=== PATIENT | female | born 1975 | race Caucasian/White ===

== ENCOUNTER → 2019-02-17 | Outpatient (CLI) | payer BC ==
[~2019-02-17] MED LIST: CEPH500C PO; INSASP10V IM; INSASP10V SC; INSU100C4 SQ; INSU100V6 SQ; LISI40TA PO
[2019-02-17 11:51] LABS: HEMATOCRIT 38 % (35-52); HEMOGLOBIN 11.5 G/DL (11.5-16.0); MEAN CORPUSCULAR HEMOGLOBIN 25 PG (25-34); MEAN CORPUSCULAR HGB CONC 30 G/DL (32-36); MEAN CORPUSCULAR VOLUME 83 FL (80-99); MEAN PLATELET VOLUME 8.7 FL (7.4-10.4); PLATELET COUNT 108 10^3/uL (130-400); RED CELL DISTRIBUTION WIDTH 14.8 % (10.0-14.5); WHITE BLOOD COUNT 10.4 10^3/uL (4.3-11.0)
[2019-02-17 11:52] LABS: BASOPHILS # (AUTO) 0.1 10^3/uL (0.0-0.1); BASOPHILS % (AUTO) 1 % (0-10); EOSINOPHILS # (AUTO) 0.1 10^3/uL (0.0-0.3); EOSINOPHILS % (AUTO) 1 % (0-10); LYMPHOCYTES % (AUTO) 29 % (12-44); MONOCYTES # (AUTO) 0.7 X 10^3 (0.0-1.0); MONOCYTES % (AUTO) 7 % (0-12); NEUTROPHILS # (AUTO) 6.4 X 10^3 (1.8-7.8); NEUTROPHILS % (AUTO) 61 % (42-75)
[2019-02-17 12:04] LABS: ALBUMIN 3.4 GM/DL (3.2-4.5); BILIRUBIN,TOTAL 0.2 MG/DL (0.1-1.0); CALCIUM 10.1 MG/DL (8.5-10.1); CREATININE SERUM 1.72 MG/DL (0.60-1.30); POTASSIUM 3.9 MMOL/L (3.6-5.0); TOTAL PROTEIN 7.3 GM/DL (6.4-8.2)
[2019-02-17 12:08] LABS: VANCOMYCIN,TROUGH 27.2 UG/ML (10.0-20.0)
[2019-02-17 12:22] LABS: ERYTHROCYTE SEDIMENTATION RATE 1 MM/HR (0-20)
== END ==
LOC: LAB FS 11:15
PROVIDERS: ATTEND Internal Medicine Infectious Disease
DX: M86.8X8 Other osteomyelitis, other site (principal); Z89.429 Acquired absence of other toe(s), unspecified side
CPT/HCPCS: 36415; 80053; 80202; 85025; 85652

== ENCOUNTER → 2019-02-18 | Outpatient (CLI) | payer BC | LOC: LAB FS 13:51 | PROVIDERS: ATTEND Internal Medicine Infectious Disease | DX: M86.8X8 Other osteomyelitis, other site (principal) | CPT/HCPCS: 36415; 80202 ==

== ENCOUNTER → 2019-02-22 | Outpatient (CLI) | payer BC | LOC: LAB 11:33 | PROVIDERS: ATTEND Internal Medicine Infectious Disease | DX: M86.171 Other acute osteomyelitis, right ankle and foot (principal); B95.62 Methicillin resistant Staphylococcus aureus infection as the cause of diseases classified elsewhere | CPT/HCPCS: 36415; 80202 ==

== ENCOUNTER → 2019-02-24 | Outpatient (CLI) | payer BC ==
[2019-02-24 08:11] LABS: BASOPHILS # (AUTO) 0.1 10^3/uL (0.0-0.1); BASOPHILS % (AUTO) 1 % (0-10); EOSINOPHILS # (AUTO) 0.2 10^3/uL (0.0-0.3); EOSINOPHILS % (AUTO) 3 % (0-10); HEMATOCRIT 34 % (35-52); LYMPHOCYTES # (AUTO) 2.4 X 10^3 (1.0-4.0); LYMPHOCYTES % (AUTO) 31 % (12-44); MEAN CORPUSCULAR HEMOGLOBIN 26 PG (25-34); MEAN CORPUSCULAR HGB CONC 32 G/DL (32-36); MEAN CORPUSCULAR VOLUME 80 FL (80-99); MEAN PLATELET VOLUME 9.3 FL (7.4-10.4); MONOCYTES # (AUTO) 0.7 X 10^3 (0.0-1.0); MONOCYTES % (AUTO) 10 % (0-12); NEUTROPHILS # (AUTO) 4.3 X 10^3 (1.8-7.8); NEUTROPHILS % (AUTO) 56 % (42-75); PLATELET COUNT 250 10^3/uL (130-400); RED CELL DISTRIBUTION WIDTH 17.1 % (10.0-14.5); WHITE BLOOD COUNT 7.7 10^3/uL (4.3-11.0)
[2019-02-24 08:29] LABS: ALBUMIN 3.5 GM/DL (3.2-4.5); BILIRUBIN,TOTAL 0.2 MG/DL (0.1-1.0); CALCIUM 9.1 MG/DL (8.5-10.1); CREATININE SERUM 1.31 MG/DL (0.60-1.30); POTASSIUM 4.6 MMOL/L (3.6-5.0)
[2019-02-24 08:35] LABS: VANCOMYCIN,TROUGH 17.4 UG/ML (10.0-20.0)
[2019-02-24 08:48] LABS: ERYTHROCYTE SEDIMENTATION RATE 38 MM/HR (0-20)
== END ==
LOC: LAB 07:58
PROVIDERS: ATTEND Internal Medicine Infectious Disease
DX: M86.8X7 Other osteomyelitis, ankle and foot (principal); B95.1 Streptococcus, group B, as the cause of diseases classified elsewhere
CPT/HCPCS: 36415; 80053; 80202; 85025; 85652

== ENCOUNTER → 2019-03-03 | Outpatient (CLI) | payer BC ==
[2019-03-03 19:41] LABS: CALCIUM 9.5 MG/DL (8.5-10.1); CREATININE SERUM 1.35 MG/DL (0.60-1.30)
[2019-03-03 19:42] LABS: ALBUMIN 3.8 GM/DL (3.2-4.5); BILIRUBIN,TOTAL 0.2 MG/DL (0.1-1.0); TOTAL PROTEIN 6.7 GM/DL (6.4-8.2)
[2019-03-03 19:54] LABS: HEMATOCRIT 38 % (35-52); HEMOGLOBIN 11.4 G/DL (11.5-16.0); MEAN CORPUSCULAR HEMOGLOBIN 26 PG (25-34); MEAN CORPUSCULAR HGB CONC 30 G/DL (32-36); MEAN CORPUSCULAR VOLUME 86 FL (80-99); PLATELET COUNT 245 10^3/uL (130-400); RED CELL DISTRIBUTION WIDTH 17.4 % (10.0-14.5)
[2019-03-03 19:55] LABS: BASOPHILS % (AUTO) 1 % (0-10); EOSINOPHILS # (AUTO) 0.2 10^3/uL (0.0-0.3); EOSINOPHILS % (AUTO) 3 % (0-10); LYMPHOCYTES % (AUTO) 29 % (12-44); MEAN PLATELET VOLUME 9.5 FL (7.4-10.4); MONOCYTES # (AUTO) 0.7 X 10^3 (0.0-1.0); MONOCYTES % (AUTO) 10 % (0-12); NEUTROPHILS % (AUTO) 57 % (42-75)
[2019-03-03 19:56] LABS: BASOPHILS # (AUTO) 0.1 10^3/uL (0.0-0.1)
[2019-03-03 21:46] LABS: ERYTHROCYTE SEDIMENTATION RATE 1 MM/HR (0-20)
== END ==
LOC: LAB FS 19:04
PROVIDERS: ATTEND Internal Medicine Infectious Disease
DX: E11.69 Type 2 diabetes mellitus with other specified complication (principal); E11.621 Type 2 diabetes mellitus with foot ulcer; L97.509 Non-pressure chronic ulcer of other part of unspecified foot with unspecified severity
CPT/HCPCS: 36415; 80053; 82550; 85025; 85652

== ENCOUNTER → 2019-03-10 | Outpatient (CLI) | payer BC ==
[2019-03-10 17:33] LABS: POTASSIUM 3.8 MMOL/L (3.6-5.0)
[2019-03-10 17:34] LABS: ALBUMIN 3.6 GM/DL (3.2-4.5); BILIRUBIN,TOTAL 0.2 MG/DL (0.1-1.0); CALCIUM 10.2 MG/DL (8.5-10.1); CREATININE SERUM 1.21 MG/DL (0.60-1.30); TOTAL PROTEIN 6.8 GM/DL (6.4-8.2)
[2019-03-10 17:55] LABS: HEMATOCRIT 36 % (35-52); HEMOGLOBIN 11.4 G/DL (11.5-16.0); MEAN CORPUSCULAR HEMOGLOBIN 26 PG (25-34); MEAN CORPUSCULAR VOLUME 82 FL (80-99); WHITE BLOOD COUNT 5.8 10^3/uL (4.3-11.0)
[2019-03-10 17:56] LABS: BASOPHILS % (AUTO) 1 % (0-10); EOSINOPHILS % (AUTO) 3 % (0-10); LYMPHOCYTES # (AUTO) 1.4 X 10^3 (1.0-4.0); LYMPHOCYTES % (AUTO) 24 % (12-44); MEAN CORPUSCULAR HGB CONC 32 G/DL (32-36); MEAN PLATELET VOLUME 9.9 FL (7.4-10.4); MONOCYTES # (AUTO) 0.4 X 10^3 (0.0-1.0); MONOCYTES % (AUTO) 7 % (0-12); NEUTROPHILS # (AUTO) 3.7 X 10^3 (1.8-7.8); NEUTROPHILS % (AUTO) 65 % (42-75); PLATELET COUNT 190 10^3/uL (130-400); RED CELL DISTRIBUTION WIDTH 16.7 % (10.0-14.5)
[2019-03-10 17:57] LABS: BASOPHILS # (AUTO) 0.1 10^3/uL (0.0-0.1); EOSINOPHILS # (AUTO) 0.2 10^3/uL (0.0-0.3)
[2019-03-10 19:41] LABS: ERYTHROCYTE SEDIMENTATION RATE 41 MM/HR (0-20)
== END ==
LOC: LAB FS 15:55
PROVIDERS: ATTEND Internal Medicine Infectious Disease
DX: M86.171 Other acute osteomyelitis, right ankle and foot (principal)
CPT/HCPCS: 36415; 80053; 82550; 85025; 85652

== ENCOUNTER → 2019-03-17 | Outpatient (CLI) | payer BC ==
[2019-03-17 20:50] LABS: BASOPHILS # (AUTO) 0.1 10^3/uL (0.0-0.1); BASOPHILS % (AUTO) 1 % (0-10); EOSINOPHILS # (AUTO) 0.2 10^3/uL (0.0-0.3); EOSINOPHILS % (AUTO) 3 % (0-10); HEMATOCRIT 37 % (35-52); HEMOGLOBIN 11.9 G/DL (11.5-16.0); LYMPHOCYTES # (AUTO) 2.9 X 10^3 (1.0-4.0); LYMPHOCYTES % (AUTO) 33 % (12-44); MEAN CORPUSCULAR HEMOGLOBIN 26 PG (25-34); MEAN CORPUSCULAR HGB CONC 32 G/DL (32-36); MEAN CORPUSCULAR VOLUME 82 FL (80-99); MEAN PLATELET VOLUME 9.8 FL (7.4-10.4); MONOCYTES # (AUTO) 0.7 X 10^3 (0.0-1.0); MONOCYTES % (AUTO) 8 % (0-12); NEUTROPHILS # (AUTO) 4.8 X 10^3 (1.8-7.8); NEUTROPHILS % (AUTO) 55 % (42-75); PLATELET COUNT 243 10^3/uL (130-400); RED CELL DISTRIBUTION WIDTH 16.6 % (10.0-14.5); WHITE BLOOD COUNT 8.7 10^3/uL (4.3-11.0)
[2019-03-17 21:12] LABS: ALBUMIN 3.9 GM/DL (3.2-4.5); BILIRUBIN,TOTAL 0.2 MG/DL (0.1-1.0); CALCIUM 9.8 MG/DL (8.5-10.1); CREATININE SERUM 1.71 MG/DL (0.60-1.30); ERYTHROCYTE SEDIMENTATION RATE 43 MM/HR (0-20); POTASSIUM 3.9 MMOL/L (3.6-5.0)
== END ==
LOC: LAB FS 20:16
PROVIDERS: ATTEND Internal Medicine Infectious Disease
DX: M86.171 Other acute osteomyelitis, right ankle and foot (principal)
CPT/HCPCS: 36415; 80053; 82550; 85025; 85652

== ENCOUNTER 2022-04-01 10:49 | Observation (INO) | payer BC, MEDICAID ==
[2022-04-01] VITALS (7 sets, daily range): BP systolic 148–168; BP diastolic 90–110
[~2022-04-01] VITALS: Ht 170 cm; Wt 117.2 kg
[2022-04-01 11:47] LABS: BASOPHILS % (AUTO) 1 % (0-10); EOSINOPHILS # (AUTO) 0.1 10^3/uL (0.0-0.3); EOSINOPHILS % (AUTO) 2 % (0-10); HEMATOCRIT 34 % (35-52); LYMPHOCYTES # (AUTO) 1.5 10^3/uL (1.0-4.0); LYMPHOCYTES % (AUTO) 34 % (12-44); MEAN CORPUSCULAR HEMOGLOBIN 31 pg (25-34); MEAN CORPUSCULAR HGB CONC 32 g/dL (32-36); MEAN CORPUSCULAR VOLUME 95 fL (80-99); MEAN PLATELET VOLUME 11.1 fL (9.0-12.2); MONOCYTES # (AUTO) 0.6 10^3/uL (0.0-1.0); MONOCYTES % (AUTO) 12 % (0-12); NEUTROPHILS # (AUTO) 2.3 10^3/uL (1.8-7.8); NEUTROPHILS % (AUTO) 51 % (42-75); PLATELET COUNT 107 10^3/uL (130-400); WHITE BLOOD COUNT 4.5 10^3/uL (4.3-11.0)
[2022-04-01 11:50] LABS: ALBUMIN 3.3 GM/DL (3.2-4.5); POTASSIUM 4.9 MMOL/L (3.6-5.0)
--- NOTE | 2022-04-01 11:50 | ED Chest Pain ---
General Chief Complaint: Chest Pain Stated Complaint: CHEST PAIN Nursing Triage Note: PT TO [facility] WITH CC OF CHEST PAIN WITH ELEVATED TROP ON 03/30 BUT REFUSED TO COME TO THE ER. DR. TINEO UPPED HER TOPRORAL FROM 25 TO 37.5. Source: patient Exam Limitations: no limitations History of Present Illness Date Seen by Provider: Apr 01, 2022 Time Seen by Provider: 11:10 Initial Comments Patient is a 46 yo F who presents to the ED with chest pain that began 2-3 days ago. Patient had a troponin drawn at her SNF on 03/30 and resulted on 03/31 as elevated. Patient was asked to present to the ED yesterday but she refused. Patient states the pain is across her chest and is worse with exertion. She endorses shortness of air as well. She was placed on oxygen due to oxygen saturations in the 80s. She does not normally require O2. She has a h/o a stroke earlier this year. She denies any cardiac history. States she saw a aging room operator in the past but hasn't seen one "in a long time." Review of her paperwork from the SNF notable for reported h/o a-fib and cardiomyopathy. She denies any knowledge of being diagnosed with cardiomyopathy. She is on apixaban but isn't sure why. Also endorses several days of bilateral lower extremity edema. Reportedly she has gained weight over the last few days. Denies any fever, cough, nasal congestion. Timing/Duration: 3-4 days Location: central Radiation: no radiation Prior CP/Workup: no prior chest pain Modifying Factors: worse with movement; improves with oxygen, improves with rest Allergies and Home Medications Allergies Coded Allergies: Penicillins (Verified Allergy, Unknown, 01/19/08) Patient Home Medication List Home Medication List Reviewed: Yes Cephalexin Monohydrate (Cephalexin) 500 Mg Capsule, 1 EACH PO TID, (Reported) Entered as Reported by: FLAKITA MALONEY on 10/12/10 110 Insulin Aspart (Novolog Vial) 10 Unit/0.1 Ml Susp, 26 UNIT SC TID, (Reported) Entered as Reported by: FLAKITA MALONEY on 10/12/10 1104 Insulin Glargine,Hum.rec.anlog (Lantus 10 Ml Vial) 100 Unit/1 Ml Vial, 23 UNITS SQ HS, (Reported) Entered as Reported by: FLAKITA MALONEY on 10/12/101103 Lisinopril (Zestril) 40 Mg Tablet, 1 EACH PO DAILY, (Reported) Entered as Reported by: FLAKITA MALONEY on 10/12/101103 Review of Systems Review of Systems Constitutional: weight gain EENTM: No Symptoms Reported Respiratory: Shortness of Air, SOA With Exertion Cardiovascular: Chest Pain, Edema Gastrointestinal: No Symptoms Reported Genitourinary: No Symptoms Reported Musculoskeletal: no symptoms reported Skin: no symptoms reported Psychiatric/Neurological: No Symptoms Reported Endocrine: No Symptoms Reported Past Gtmzlkz-Lsribu-Buqrtp Hx Patient Social History Tobacco Use?: No Substance use?: No Alcohol Use?: No Immunizations Up To Date Second COVID19 Vaccination Jean Carlos: 02/2021 Past Medical History Surgery/Hospitalization HX: TYPE II DIABETIC, EPILEPSY HYPOTHYRODISM KIDNEY DISEASE STAGE 3 Reproductive Disorders: No Physical Exam Vital Signs Vital Signs - First Documented 04/01/22 10:52 Temp 35.7 Pulse 66 Resp 20 B/P (MAP) 149/109 (122) Pulse Ox 96 O2 Delivery Nasal Cannula O2 Flow Rate 2.00 Capillary Refill : Less Than 3 Seconds Height, Weight, BMI Height: '" Weight: lbs. oz. kg; 40.00 BMI Method:Stated General Appearance: No Apparent Distress, WD/WN HEENT: PERRL/EOMI, TMs Normal, Normal ENT Inspection, Pharynx Normal Neck: Full Range of Motion, Normal Inspection, Non Tender, Supple Respiratory: Chest Non Tender, Lungs Clear Cardiovascular: Regular Rate, Rhythm Gastrointestinal: Normal Bowel Sounds Extremity: Normal Capillary Refill, Pedal Edema Neurologic/Psychiatric: Alert, Oriented x3, No Motor/Sensory Deficits, Normal Mood/Affect, department director II-XII Norm as Tested Skin: Normal Color, Warm/Dry Progress/Results/Core Measures Results/Orders Lab Results Laboratory Tests Test 04/01/22 11:04 Range/Units White Blood Count 4.5 4.3-11.0 10^3/uL Red Blood Count 3.61 L 3.80-5.11 10^6/uL Hemoglobin 11.0 L 11.5-16.0 g/dL Hematocrit 34 L 35-52 % Mean Corpuscular Volume 95 80-99 fL Mean Corpuscular Hemoglobin 31 25-34 pg Mean Corpuscular Hemoglobin Concent 32 32-36 g/dL Red Cell Distribution Width 14.4 10.0-14.5 % Platelet Count 107 L 130-400 10^3/uL Mean Platelet Volume 11.1 9.0-12.2 fL Immature Granulocyte % (Auto) 0 % Neutrophils (%) (Auto) 51 42-75 % Lymphocytes (%) (Auto) 34 12-44 % Monocytes (%) (Auto) 12 0-12 % Eosinophils (%) (Auto) 2 0-10 % Basophils (%) (Auto) 1 0-10 % Neutrophils # (Auto) 2.3 1.8-7.8 10^3/uL Lymphocytes # (Auto) 1.5 1.0-4.0 10^3/uL Monocytes # (Auto) 0.6 0.0-1.0 10^3/uL Eosinophils # (Auto) 0.1 0.0-0.3 10^3/uL Basophils # (Auto) 0.0 0.0-0.1 10^3/uL Immature Granulocyte # (Auto) 0.0 0.0-0.1 10^3/uL Percent Immature Platelet Fraction 2.9 0.0-7.6 % Prothrombin Time 14.8 H 12.2-14.7 SEC INR Comment 1.1 0.8-1.4 Activated Partial Thromboplast Time 22 L 24-35 SEC Sodium Level 142 135-145 MMOL/L Potassium Level 4.9 3.6-5.0 MMOL/L Chloride Level 106 98-107 MMOL/L Carbon Dioxide Level 24 21-32 MMOL/L Anion Gap 12 5-14 MMOL/L Blood Urea Nitrogen 33 H 7-18 MG/DL Creatinine 1.81 H 0.60-1.30 MG/DL Estimat Glomerular Filtration Rate 34 BUN/Creatinine Ratio 18 Glucose Level 110 H 70-105 MG/DL Calcium Level 8.4 L 8.5-10.1 MG/DL Corrected Calcium 9.0 8.5-10.1 MG/DL Magnesium Level 1.9 1.6-2.4 MG/DL Total Bilirubin 0.4 0.1-1.0 MG/DL Aspartate Amino Transf (AST/SGOT) 45 H 5-34 U/L Alanine Aminotransferase (ALT/SGPT) 21 0-55 U/L Alkaline Phosphatase 74 40-136 U/L Myoglobin 194.4 H 10.0-92.0 NG/ML Troponin I < 0.028 <0.028 NG/ML B-Type Natriuretic Peptide 692.0 H <100.0 PG/ML Total Protein 6.9 6.4-8.2 GM/DL Albumin 3.3 3.2-4.5 GM/DL Smear Scan YES My Orders Orders - YOAV RIZO [employer] Cbc With Automated Diff (04/01/22 11:38) Magnesium (04/01/22 11:38) Chest 1 View, Ap/Pa Only (04/01/22 11:38) Ekg Tracing (04/01/22 11:38) Comprehensive Metabolic Panel (04/01/22 11:38) Myoglobin Serum (04/01/22 11:38) Protime With Inr (04/01/22 11:38) Partial Thromboplastin Time (04/01/22 11:38) O2 (04/01/22 11:38) Monitor-Rhythm Ecg Trace Only (04/01/22 11:38) Ed Iv/Invasive Line Start (04/01/22 11:38) Bnp Miner (04/01/22 11:38) Troponin I Miner (04/01/22 11:38) Furosemide Injection (Lasix Injection) (04/01/22 13:15) Ed Admission (Communication) (04/01/22 14:08) Medications Given in ED Current Medications Medications Dose Ordered Sig/Aravind Route Start Time Stop Time Status Last Admin Dose Admin Furosemide 40 mg ONCE ONCE IVP 04/01/22 13:15 04/01/22 13:17 DC 04/01/22 13:44 40 MG Vital Signs/I&O 04/01/22 04/01/22 10:52 10:55 Temp 35.7 Pulse 66 Resp 20 B/P (MAP) 149/109 (122) Pulse Ox 96 96 O2 Delivery Nasal Cannula Nasal Cannula O2 Flow Rate 2.00 2.00 Blood Pressure Mean: 122 Progress Progress Note : Progress Note Patient is nontoxic on exam. No adventitious lung sounds noted on exam. 2+ pitting edema noted to bilateral feet/ankles/lower legs. Requiring two liters of O2 via NC to maintain oxygen saturations. Will obtain cardiac workup. Troponin negative. BNP elevated. EKG without ischemic change or arrhythmia. Laboratory evaluation otherwise reassuring. Chest xray with bilateral opacities as well as small left pleural effusion. Feel this is more likely related to fluid overload versus infection. Will hold antimicrobials at this time. Patient given lasix. Cardiology consulted. Will admit for further evaluation and treatment. Hospitalist kindly agreed to admit. Consults : Consulting Physician: WICHO KHALIL MD FACP FACC CCDS Consults Notes will see patient; recs for continued Lasix Departure Impression Primary Impression: Acute exacerbation of CHF (congestive heart failure) Qualified Codes: I50.9 - Heart failure, unspecified Disposition: ADMITTED INPATIENT Condition: Stable Admissions Decision to Admit/Date: Apr 01, 2022 Time/Decision to Admit Time: 15:50 Departure-Patient Inst. Referrals: MENA ZURITA DO (PCP/Family) Primary Care Physician YOAV RIZO APRN Apr 01, 2022 11:50
[2022-04-01 11:51] LABS: CALCIUM 8.4 MG/DL (8.5-10.1); INR 1.1 (0.8-1.4); PROTHROMBIN TIME PATIENT 14.8 SEC (12.2-14.7)
[2022-04-01 11:53] LABS: TOTAL PROTEIN 6.9 GM/DL (6.4-8.2)
[2022-04-01 11:54] LABS: BILIRUBIN,TOTAL 0.4 MG/DL (0.1-1.0)
[2022-04-01 11:56] LABS: CREATININE SERUM 1.81 MG/DL (0.60-1.30)
[2022-04-01 11:59] LABS: MAGNESIUM 1.9 MG/DL (1.6-2.4)
--- NOTE | 2022-04-01 12:43 | Diagnostic Imaging Report ---
HISTORY: Chest pain COMPARISON: None TECHNIQUE: Frontal view of the chest. FINDINGS: Lung volumes are low. There are perihilar and bibasilar airspace opacities. There is a small left pleural effusion. There is no pneumothorax. IMPRESSION: 1. Bilateral perihilar and bibasilar airspace opacities, may represent edema or infection. 2. Small left pleural effusion. Dictated by: Dictated on workstation # [id number]
[2022-04-01 12:56] LABS: SMEAR SCAN COMMENT YES
[2022-04-01] MEDS ORDERED: FUROSEMIDE 40 MG/4 ML INJ (LASIX) IVP ONE (13:15)
[2022-04-01] MEDS ORDERED: CALCIUM CARBONATE 500 MG (TUMS) TAB.CHEW PO PRN (14:30)
[2022-04-01] MEDS ORDERED: cloNIDine 0.1 MG (CATAPRES) TAB PO PRN (14:30)
[2022-04-01] MEDS ORDERED: ACETAMINOPHEN 325 MG TABLET PO PRN (14:30)
[2022-04-01] MEDS ORDERED: diphenhydrAMINE 50 MG/ML INJ (BENADRYL) IVP PRN (14:30)
[2022-04-01] MEDS ORDERED: MELATONIN 3 MG TABLET PO PRN (14:30)
[2022-04-01] MEDS ORDERED: PATIENT MAY USE OWN MEDS, ALL PO SCH (14:30)
[2022-04-01] MEDS ORDERED: diphenhydrAMINE 25 MG TAB (BENADRYL) PO PRN (14:30)
[2022-04-01] MEDS ORDERED: NITROGLYCERIN 0.4 MG SL TABS BTL 25'S SL PRN (14:30)
[2022-04-01] MEDS ORDERED: MILK OF MAGNESIA 400 MG/5 ML 30 ML UDC PO PRN (14:30)
[2022-04-01] MEDS ORDERED: ONDANSETRON 4 MG (ZOFRAN) ORAL DISSOLVE TAB PO PRN (14:30)
[2022-04-01] MEDS ORDERED: polyethylene glycoL POWDER 17 GM (MIRALAX) PACK PO PRN (14:30)
[2022-04-01] MEDS ORDERED: ONDANSETRON 4 MG/2 ML (SDV) Z0FRAN IV PRN (14:30)
[2022-04-01] MEDS ORDERED: ALPRAZolam 0.5 MG (XANAX) TAB PO PRN (14:30)
[2022-04-01] MEDS ORDERED: BISACODYL 10 MG SUPP (DULCOLAX) PR PRN (14:30)
[2022-04-01] MEDS ORDERED: ANTACID SUSP 30 ML UDC (MYLANTA) PO PRN (14:30)
[2022-04-01] MEDS ORDERED: LACTULOSE SYRUP 10GM/15ML (ENULOSE) 30ML UDC PO PRN (14:30)
[2022-04-01] MEDS ORDERED: morphine INJ 4 MG/ML 1 ML (VIAL/SYRINGE) IV PRN (14:30)
--- NOTE | 2022-04-01 14:30 | History & Physical-Hospitalist ---
History of Present Illness HPI/Chief Complaint Chief complaint: Chest pain with shortness of breath HPI: This is a 46-year-old female who resides in a [facility] due to prior stroke who presents to the ER with shortness of breath and chest pain was found to have new onset congestive heart failure. Cardiology was consulted and Lasix IV was ordered. Mother is at the bedside. Source: patient Exam Limitations: clinical condition Date Seen 04/01/22 Time Seen by a Provider: 16:00 Attending Physician Liset Zarate DO PCP Admitting Physician: Danielle Mota DO Attending Physician: Danielle Mota DO Referring Physician WICHO KHALIL MD FACP FAC CCDS Date of Admission Apr 01, 2022 at 14:09 Home Medications & Allergies Home Medications Reviewed patient Home Medication Reconciliation performed by pharmacy medication reconciliations compressor technician and/or nursing. Patients Allergies have been reviewed. Allergies Allergies Coded Allergies Penicillins (Verified Allergy, Unknown, 01/19/08) Past Mwjgwnp-Svvmgy-Rrmego Hx Patient Social History Marrital Status: single Employed/Student: unemployed Tobacco Use?: No Substance use?: No Alcohol Use?: No Immunizations Up To Date Second COVID19 Vaccination Jean Carlos: 02/2021 Current Status Primary Language: Kinyarwanda Preferred Spoken Language: Kinyarwanda Past Medical History High Cholesterol, Hypertension Stroke Review of Systems Constitutional: see HPI Respiratory: short of breath Cardiovascular: chest pain Physical Exam Physical Exam Vital Signs Vital Signs - First Documented 04/01/22 04/01/22 10:52 14:44 Temp 35.7 Pulse 66 Resp 20 B/P (MAP) 149/109 (122) Pulse Ox 96 O2 Delivery Nasal Cannula O2 Flow Rate 2.00 FiO2 28 Capillary Refill : Less Than 3 Seconds Height, Weight, BMI Height: '" Weight: lbs. oz. kg; 40.00 BMI Method:Stated General Appearance: No Apparent Distress, Chronically ill Eyes: Right Eye Normal Inspection, Right Eye PERRL HEENT: PERRL/EOMI, Normal ENT Inspection, Pharynx Normal, Moist Mucous Membranes Neck: Full Range of Motion, Normal Inspection, Non Tender Respiratory: Chest Non Tender, Lungs Clear, Normal Breath Sounds, No Accessory Muscle Use, No Respiratory Distress Cardiovascular: Regular Rate, Rhythm, No Edema, No Gallop, No JVD, No Murmur, Normal Peripheral Pulses Gastrointestinal: Normal Bowel Sounds, No Organomegaly, No Pulsatile Mass, Non Tender, Soft Back: Normal Inspection, No CVA Tenderness, No Vertebral Tenderness Extremity: Normal Capillary Refill, Normal Inspection, Normal Range of Motion (Generalized weakness), Non Tender, No Calf Tenderness, No Pedal Edema Neurologic/Psychiatric: Alert, Oriented x3, No Motor/Sensory Deficits, Normal Mood/Affect, Disoriented Skin: Normal Color, Warm/Dry Lymphatic: No Adenopathy Results Results/Procedures Labs Laboratory Tests 04/01/22 11:04 Patient resulted labs reviewed. Assessment/Plan Admission Diagnosis Assessment: Chest pain New onset congestive heart failure Prior CVA resides in a mcc at 46 years old Hypertension Hyperlipidemia A. fib Plan: Supportive care Monitor closely Cardiology consult Admission Status: Observation Diagnosis/Problems Diagnosis/Problems (1) Acute exacerbation of CHF (congestive heart failure) Status: Acute Qualifiers: Heart failure type: unspecified Qualified Codes: I50.9 - Heart failure, unspecified DANIELLE MOTA DO Apr 01, 2022 14:30
[2022-04-01] MEDS ORDERED: RT-ALBUTEROL SULF 2.5 MG/3 ML PRE-MIX VIAL INH PRN (17:00)
[2022-04-01] MEDS ORDERED: FURO40TA4 PO (17:25)
[2022-04-01] MEDS ORDERED: MAGN400O7 PO (17:25)
[2022-04-01] MEDS ORDERED: LACO100T4 PO (17:25)
[2022-04-01] MEDS ORDERED: FERR-84 PO (17:25)
[2022-04-01] MEDS ORDERED: AMLO-250 PO (17:25)
[2022-04-01] MEDS ORDERED: METO-333 PO (17:25)
[2022-04-01] MEDS ORDERED: OLAN2.5T27 PO (17:25)
[2022-04-01] MEDS ORDERED: MINE120C TP (17:25)
[2022-04-01] MEDS ORDERED: APIX5TAB PO (17:25)
[2022-04-01] MEDS ORDERED: B12/1TAB PO (17:25)
[2022-04-01] MEDS ORDERED: ASPI-999 PO (17:25)
[2022-04-01] MEDS ORDERED: ATOR40TA70 PO (17:25)
[2022-04-01] MEDS ORDERED: LEVE750T5 PO (17:25)
[2022-04-01] MEDS ORDERED: ACET325T49 PO (17:25)
[2022-04-01] MEDS ORDERED: DOCU-143 PO (17:25)
[2022-04-01] MEDS ORDERED: DIVA-76 PO (17:25)
[2022-04-01] MEDS ORDERED: ESCI-2 PO (17:25)
[2022-04-01] MEDS: RT-ALBUTEROL SULF 2.5 MG/3 ML PRE-MIX VIAL INH SCH (19:57)
[2022-04-01] MEDS ORDERED: amLODIPine 5 MG (NORVASC) TAB PO ONE (20:30)
[2022-04-01] MEDS: APIXABAN 5 MG (ELIQUIS) TABLET PO SCH (21:41)
[2022-04-01] MEDS: DOCUSATE SODIUM 100 MG (COLACE) CAP PO SCH (21:41)
[2022-04-01] MEDS: hydrALAZINE (APRESOLINE) 25 MG TAB PO SCH (21:41)
[2022-04-01] MEDS: SENNOSIDES 8.6 MG (SENOKOT) TAB PO SCH (21:41)
[2022-04-02] VITALS: BP 152/89
[2022-04-02 04:00] VITALS: BP 142/83
--- NOTE | 2022-04-02 05:26 | Progress Note - Hospitalist ---
Subjective HPI/CC On Admission Date Seen by Provider: Apr 02, 2022 Time Seen by Provider: 11:00 Chief complaint: Chest pain with shortness of breath HPI: This is a 46-year-old female who resides in a halfway due to prior stroke who presents to the ER with shortness of breath and chest pain was found to have new onset congestive heart failure. Cardiology was consulted and Lasix IV was ordered. Mother is at the bedside. Subjective/Events-last exam Patient doing a lot better Up in chair sitting Mother at the bedside Increased urinary output from Lasix Stress test tomorrow Is able to eat and drink today Creatinine stable 1.7 Review of Systems General: Fatigue, Malaise Pulmonary: Dyspnea, Cough Neurological: Weakness, Incoordination, Confusion Objective Exam Vital Signs Vital Signs Date Time Temp Pulse Resp B/P (MAP) Pulse Ox O2 Delivery O2 Flow Rate FiO2 04/02/22 15:08 63 145/77 (99) 04/02/22 11:51 36.2 10 100 Nasal Cannula 2.00 04/02/22 08:00 96 Capillary Refill : Less Than 3 Seconds General Appearance: No Apparent Distress, WD/WN Respiratory: No Accessory Muscle Use, No Respiratory Distress, Decreased Breath Sounds Cardiovascular: Regular Rate, Rhythm Neurologic/Psychiatric: Alert, Oriented x3, Depressed Affect (None), Disor iented Results/Procedures Lab Laboratory Tests 04/02/22 05:32 Patient resulted labs reviewed. Assessment/Plan Assessment and Plan Assess & Plan/Chief Complaint Assessment: Chest pain New onset congestive heart failure Prior CVA resides in a halfway at 46 years old Hypertension Hyperlipidemia A. fib Depression Plan: Supportive care Monitor closely Cardiology consult appreciated Stress test tomorrow Diagnosis/Problems Diagnosis/Problems (1) Acute exacerbation of CHF (congestive heart failure) Status: Acute Qualifiers: Heart failure type: unspecified Qualified Codes: I50.9 - Heart failure, unspecified ZEUS GALLARDO DO Apr 02, 2022 05:26
[2022-04-02 05:48] LABS: BASOPHILS % (AUTO) 1 % (0-10); HEMOGLOBIN 10.3 g/dL (11.5-16.0)
[2022-04-02 05:50] LABS: EOSINOPHILS # (AUTO) 0.1 10^3/uL (0.0-0.3); EOSINOPHILS % (AUTO) 2 % (0-10); HEMATOCRIT 32 % (35-52); LYMPHOCYTES # (AUTO) 1.6 10^3/uL (1.0-4.0); LYMPHOCYTES % (AUTO) 35 % (12-44); MEAN CORPUSCULAR HEMOGLOBIN 30 pg (25-34); MEAN CORPUSCULAR HGB CONC 32 g/dL (32-36); MEAN CORPUSCULAR VOLUME 95 fL (80-99); MEAN PLATELET VOLUME 9.8 fL (9.0-12.2); MONOCYTES # (AUTO) 0.5 10^3/uL (0.0-1.0); MONOCYTES % (AUTO) 12 % (0-12); NEUTROPHILS # (AUTO) 2.3 10^3/uL (1.8-7.8); NEUTROPHILS % (AUTO) 51 % (42-75); PLATELET COUNT 111 10^3/uL (130-400); WHITE BLOOD COUNT 4.5 10^3/uL (4.3-11.0)
[2022-04-02 05:57] LABS: ALBUMIN 2.9 GM/DL (3.2-4.5); CHLORIDE 106 MMOL/L (98-107); POTASSIUM 3.8 MMOL/L (3.6-5.0); SODIUM 141 MMOL/L (135-145)
[2022-04-02 05:58] LABS: CALCIUM 8.4 MG/DL (8.5-10.1)
[2022-04-02 05:59] LABS: TRIGLYCERIDES 60 MG/DL (<150); VLDL CHOLESTEROL 12 MG/DL (5-40)
[2022-04-02 06:00] LABS: GLUCOSE 145 MG/DL (70-105); TOTAL PROTEIN 5.5 GM/DL (6.4-8.2)
[2022-04-02 06:01] LABS: CARBON DIOXIDE 29 MMOL/L (21-32)
[2022-04-02 06:02] LABS: BILIRUBIN,TOTAL 0.4 MG/DL (0.1-1.0)
[2022-04-02 06:03] LABS: ALKALINE PHOSPHATASE 69 U/L (40-136); CREATININE SERUM 1.75 MG/DL (0.60-1.30); GFR ESTIMATED 36
[2022-04-02 06:04] LABS: CHOLESTEROL 90 MG/DL (< 200)
[2022-04-02 06:05] LABS: BUN/CREATININE RATIO 19
[2022-04-02 06:06] LABS: HDL CHOLESTEROL 38 MG/DL (40-60)
[2022-04-02 06:07] LABS: ALANINE AMINOTRANSFERASE 17 U/L (0-55)
[2022-04-02] MEDS: hydrALAZINE (APRESOLINE) 25 MG TAB PO SCH ×3 (06:24→21:35)
[2022-04-02 07:30] VITALS: BP 152/82
[2022-04-02] MEDS: FUROSEMIDE 40 MG/4 ML INJ (LASIX) IVP SCH (08:50)
[2022-04-02] MEDS ORDERED: ASPIRIN E.C. 81 MG (ECOTRIN) TAB PO SCH (09:00)
[2022-04-02] MEDS: DOCUSATE SODIUM 100 MG (COLACE) CAP PO SCH ×2 (09:55→20:44)
[2022-04-02] MEDS: SENNOSIDES 8.6 MG (SENOKOT) TAB PO SCH ×2 (09:56→20:45)
[2022-04-02] MEDS: amLODIPine 5 MG (NORVASC) TAB PO SCH (10:10)
[2022-04-02] MEDS: APIXABAN 5 MG (ELIQUIS) TABLET PO SCH ×2 (10:10→20:22)
[2022-04-02] MEDS: RT-ALBUTEROL SULF 2.5 MG/3 ML PRE-MIX VIAL INH SCH ×2 (10:37→20:38)
[2022-04-02] MEDS ORDERED: DOCUSATE SODIUM 100 MG (COLACE) CAP PO PRN (11:15)
[2022-04-02] MEDS ORDERED: MILK OF MAGNESIA 400 MG/5 ML 30 ML UDC PO PRN (11:15)
[2022-04-02] MEDS ORDERED: meTOprolol TARTRATE 25 MG (LOPRESSOR) TABLET PO SCH (11:30)
[2022-04-02] MEDS: FERROUS SULF 325 MG (IRON) TAB PO SCH (11:35)
[2022-04-02] MEDS: DIVALPROEX 250 MG DELAYED RELEASE (DEPAKOTE) TAB PO SCH ×2 (11:35→20:22)
[2022-04-02 11:51] VITALS: BP 159/93
[2022-04-02] MEDS: NYSTATIN CREAM (MYCOSTATIN) 30 GM TUBE TP SCH ×2 (13:00→20:45)
[2022-04-02 15:08] VITALS: BP 145/77
--- NOTE | 2022-04-02 15:46 | Consultation-Cardiology ---
HPI-Cardiology Cardiology Consultation: Date of Consultation 04/02/22 Time Seen by a Provider: 12:10 Date of Admission 04/01/22 Attending Physician Liset Zarate DO Admitting Physician Admitting Physician: Danielle Mota DO Attending Physician: Danielle Mota DO Consulting Physician WICHO KHALIL MD, MA, FACP, FACC, FSCAI, CCDS Physician requesting consult: Dr Mota HPI: Chief Complaint: Reason for Card consult: Shortness of breath, swelling 46 yo woman, resident of a local [facility], admitted to Dr Mota on 04/01/22 with increasing shortness of breath and worsening leg swelling for several days. She does not report cp. She denies fever or chills. She denies palp or syncope. Does note gen malaise Review of Systems-Cardiology Review of Systems Constitutional: As described under HPI Eyes: No vision change Ears/Nose/Throat: No ear discharge, No nasal drainage, No recent hearing loss Respiratory: As described under HPI Cardiovascular: As described under HPI Gastrointestinal: No diarrhea, No nausea, No vomiting Genitourinary: No dysuria, No hematuria Musculoskeletal: back pain (chronic) Skin: No rash, No ulcerations Psychiatric/Neurological: No seizure, No focal weakness, No syncope Hematologic: No bleeding abnormalities HTQ-Jxsmmh-Oojiml Hx Patient Social History Marrital Status: single Employed/Student: unemployed Smoking Status: Never a Smoker Have you traveled recently?: No Alcohol Use?: No Pt feels they are or have been: No Past Medical History PMH As described under Assessment. Family Medical History Family Medical History: She does not report fam h/o early CAD Allergies and Home Medications Allergies Coded Allergies: Penicillins (Verified Allergy, Unknown, 01/19/08) Patient Home Medication List Home Medication List Reviewed: Yes Acetaminophen (Acetaminophen) 325 Mg Tablet, 650 MG PO Q6H PRN for PAIN-MILD (1- 4), (Reported) Entered as Reported by: SOREN BOLANOS on 04/01/221724 Last Action: Held Amlodipine Besylate (Amlodipine Besylate) 5 Mg Tablet, 5 MG PO DAILY, (Reported) Entered as Reported by: SOREN BOLANOS on 04/01/221724 Last Action: Held Apixaban (Eliquis) 5 Mg Tablet, 5 MG PO BID, (Reported) Entered as Reported by: SOREN BOLANOS on 04/01/221724 Last Action: Held Aspirin (Aspirin) 81 Mg Tab.chew, 81 MG PO DAILY, (Reported) Entered as Reported by: SOREN BOLANOS on 04/01/221724 Last Action: Continued Atorvastatin Calcium (Atorvastatin Calcium) 40 Mg Tablet, 40 MG PO HS, (Reported) Entered as Reported by: SOREN BOLANOS on 04/01/221724 Last Action: Continued B12/Levomefolate Calcium/B-6 (Foltx Tablet) 2 Mg-1.13 Mg-25 Mg Tablet, 1 TAB PO DAILY, (Reported) Entered as Reported by: SOREN BOLANOS on 04/01/221724 Last Action: Converted Divalproex Sodium (Divalproex Sodium) 500 Mg Tablet.dr, 500 MG PO BID, (Reported) Entered as Reported by: SOREN BOLANOS on 04/01/221724 Last Action: Converted Docusate Sodium (Colace) 100 Mg Capsule, 100 MG PO DAILY PRN for CONSTIPATION- 1ST LINE, (Reported) Entered as Reported by: SOREN BOLANOS on 04/01/221724 Last Action: Continued Escitalopram Oxalate (Escitalopram Oxalate) 10 Mg Tablet, 10 MG PO DAILY, (Reported) Entered as Reported by: SOREN BOLANOS on 04/01/221724 Last Action: Converted Ferrous Sulfate (Iron) 325 Mg (65 Mg Iron) Tablet, 325 MG PO DAILY, (Reported) Entered as Reported by: SOREN BOLANOS on 04/01/221724 Last Action: Continued Furosemide (Furosemide) 40 Mg Tablet, 40 MG PO DAILY, (Reported) Entered as Reported by: SOREN BOLANOS on 04/01/221724 Last Action: Held Lacosamide (Lacosamide) 100 Mg Tablet, 100 MG PO BID, (Reported) Entered as Reported by: SOREN BOLANOS on 04/01/221724 Last Action: Converted Levetiracetam (Levetiracetam) 750 Mg Tablet, 750 MG PO BID, (Reported) Entered as Reported by: SOREN BOLANOS on 04/01/221724 Last Action: Converted Magnesium Hydroxide (Milk of Magnesia) 400 Mg/5 Ml Oral.susp, 30 ML PO DAILY PRN for CONSTIPATION-2ND LINE, (Reported) Entered as Reported by: SOREN BOLANOS on 04/01/221724 Last Action: Continued Metoprolol Tartrate (Metoprolol Tartrate) 25 Mg Tablet, 37.5 MG PO BID, (Reported) Entered as Reported by: SOREN BOLANOS on 04/01/221724 Last Action: Continued Mineral Oil/Petrolatum,White (Eucerin Creme) 113 Gm Cream..g., 1 GM TP HS, (Reported) Entered as Reported by: SOREN BOLANOS on 04/01/221724 Last Action: Continued Olanzapine (Olanzapine) 2.5 Mg Tablet, 2.5 MG PO HS, (Reported) Entered as Reported by: SOREN BOLANOS on 04/01/221724 Last Action: Continued Discontinued Medications Cephalexin Monohydrate (Cephalexin) 500 Mg Capsule, 1 EACH PO TID, (Reported) Discontinued Reason: No Longer Taking Entered as Reported by: FLAKITA MALONEY on 10/12/101103 Last Action: Discontinued Insulin Aspart (Novolog Vial) 10 Unit/0.1 Ml Susp, 26 UNIT SC TID, (Reported) Discontinued Reason: No Longer Taking Entered as Reported by: FLAKITA MALONEY on 10/12/101103 Last Action: Discontinued Insulin Glargine,Hum.rec.anlog (Lantus 10 Ml Vial) 100 Unit/1 Ml Vial, 23 UNITS SQ HS, (Reported) Discontinued Reason: No Longer Taking Entered as Reported by: FLAKITA MALONEY on 10/12/101103 Last Action: Discontinued Lisinopril (Zestril) 40 Mg Tablet, 1 EACH PO DAILY, (Reported) Discontinued Reason: No Longer Taking Entered as Reported by: FLAKITA MALONEY on 10/12/101103 Last Action: Discontinued Physical Exam-Cardiology Physical Exam Vital Signs/I&O 04/02/22 04/02/22 04/02/22 04/02/22 04:00 07:00 07:30 08:00 Temp 36.5 Pulse 64 61 68 Resp 15 11 B/P (MAP) 142/83 (102) 152/82 (105) Pulse Ox 96 96 O2 Delivery Nasal Cannula Nasal Cannula Nasal Cannula O2 Flow Rate 2.00 2.00 2.00 FiO2 96 04/02/22 04/02/22 04/02/22 11:51 13:00 15:08 Temp 36.2 Pulse 56 58 63 Resp 10 B/P (MAP) 159/93 (115) 145/77 (99) Pulse Ox 100 O2 Delivery Nasal Cannula O2 Flow Rate 2.00 04/01/22 23:59 Intake Total 325 ml Output Total 200 ml Balance 125 ml Capillary Refill : Less Than 3 Seconds Constitutional: AAO x 3, well-developed, well-nourished HEENT: EOMI, hearing is well preserved; No xanthelasmas are seen Neck: No non-tender; carotid pulses are 2 + bilaterally Respiratory: No accessory muscle use; other (fair air entry, basal fine and coarse crackles) Cardiovascular: regular rate-rhythm, systolic murmur (soft VERNA at card base) Gastrointestinal: No tender; soft; No guarding, No rebound; audible bowel sounds Extremities: swelling (2+ edema of the legs); No clubbing, No cyanosis Neurologic/Psychiatric: other (appears to be able to move all limbs) Skin: No rash on exposed areas, No ulcerations on exposed areas Data Review Labs Laboratory Tests 04/01/22 18:33: Troponin I < 0.028 04/01/22 23:49: Troponin I < 0.028 04/02/22 05:32: Troponin I < 0.028, White Blood Count 4.5, Red Blood Count 3.43L, Hemoglobin 10 .3L, Hematocrit 32L, Mean Corpuscular Volume 95, Mean Corpuscular Hemoglobin 30, Mean Corpuscular Hemoglobin Concent 32, Red Cell Distribution Width 14.1, Radha telet Count 111L, Mean Platelet Volume 9.8, Immature Granulocyte % (Auto) 0, Neutrophils (%) (Auto) 51, Lymphocytes (%) (Auto) 35, Monocytes (%) (Auto) 12, Eosinophils (%) (Auto) 2, Basophils (%) (Auto) 1, Neutrophils # (Auto) 2.3, Lymphocytes # (Auto) 1.6, Monocytes # (Auto) 0.5, Eosinophils # (Auto) 0.1, Basophils # (Auto) 0.0, Immature Granulocyte # (Auto) 0.0, Percent Immature Platelet Fraction 1.7, Sodium Level 141, Potassium Level 3.8, Chloride Level 106, Carbon Dioxide Level 29, Anion Gap 6, Blood Urea Nitrogen 33H, Creatinine 1.75H, Estimat Glomerular Filtration Rate 36, BUN/Creatinine Ratio 19, Glucose Level 145H, Calcium Level 8.4L, Corrected Calcium 9.3, Total Bilirubin 0.4, Aspartate Amino Transf (AST/SGOT) 21, Alanine Aminotransferase (ALT/SGPT) 17, Alkaline Phosphatase 69, Total Protein 5.5L, Albumin 2.9L, Triglycerides Level 60, Cholesterol Level 90, LDL Cholesterol Direct 35, VLDL Cholesterol 12, HDL Cholesterol 38L Laboratory Tests 04/01/22 11:04 04/02/22 05:32 A/P-Cardiology Assessment/Admission Diagnosis Ac systolic CHF due to dilated cardiomyopathy - she reports a negative cath with Dr Woodson at [facility] 3-4 years ago - Echo on 04/02/22: LVEF 40-45%, mild conc LVH CKD 3-4 Hypertension SSS and h/o PAF Sinus oneil and nonspecific IVCD on ECG, probably chronic, on ECGs of 04/01 and 04/02/22 Discussion and Recomendations * Treat with diuretics * Treat cautiously with low dose carvedilol * Add Jardiance for heart failure * Does not appear suitable for ROSEMARIE-inhib or ARB or spironolactone at this time, given considerable renal failure * Monitor labs closely WICHO KHALIL MD [facility] Apr 02, 2022 15:46
[2022-04-02] MEDS ORDERED: KCL 20 MEQ TAB (K-DUR) PO NR (16:00)
[2022-04-02] MEDS ORDERED: CATHETER FLUSH 10 ML SYR IVP PRN (16:00)
[2022-04-02 19:36] VITALS: BP 145/74
[2022-04-02] MEDS: OLANZapine 2.5 MG (ZyPREXA) TAB PO SCH (20:22)
[2022-04-02] MEDS: NYSTATIN OINTMENT 30 GM TUBE TOP SCH (20:28)
[2022-04-02] MEDS: CATHETER FLUSH 10 ML SYR IVP SCH (20:28)
[2022-04-02] MEDS: EUCERIN CREAM 4 OZ JAR (HYDROCERIN) TP SCH ×2 (20:29→20:46)
[2022-04-03] VITALS (9 sets, daily range): BP systolic 126–171; BP diastolic 63–110
[2022-04-03] MEDS: CATHETER FLUSH 10 ML SYR IVP SCH ×3 (06:00→19:51)
[2022-04-03] MEDS: KCL 20 MEQ TAB (K-DUR) PO SCH ×2 (06:00→06:05)
[2022-04-03] MEDS: hydrALAZINE (APRESOLINE) 25 MG TAB PO SCH ×4 (06:01→19:55)
[2022-04-03 06:12] LABS: MEAN CORPUSCULAR HEMOGLOBIN 30 pg (25-34); MONOCYTES % (AUTO) 12 % (0-12)
[2022-04-03 06:13] LABS: BASOPHILS % (AUTO) 1 % (0-10); EOSINOPHILS # (AUTO) 0.1 10^3/uL (0.0-0.3); EOSINOPHILS % (AUTO) 3 % (0-10); HEMATOCRIT 33 % (35-52); HEMOGLOBIN 10.4 g/dL (11.5-16.0); LYMPHOCYTES # (AUTO) 1.2 10^3/uL (1.0-4.0); LYMPHOCYTES % (AUTO) 28 % (12-44); MEAN CORPUSCULAR HGB CONC 32 g/dL (32-36); MEAN CORPUSCULAR VOLUME 96 fL (80-99); MEAN PLATELET VOLUME 9.8 fL (9.0-12.2); MONOCYTES # (AUTO) 0.5 10^3/uL (0.0-1.0); NEUTROPHILS # (AUTO) 2.4 10^3/uL (1.8-7.8); NEUTROPHILS % (AUTO) 56 % (42-75); PLATELET COUNT 95 10^3/uL (130-400); WHITE BLOOD COUNT 4.4 10^3/uL (4.3-11.0)
[2022-04-03 06:32] LABS: ALBUMIN 2.9 GM/DL (3.2-4.5); POTASSIUM 4.3 MMOL/L (3.6-5.0)
[2022-04-03 06:33] LABS: CALCIUM 8.5 MG/DL (8.5-10.1)
[2022-04-03 06:34] LABS: TOTAL PROTEIN 5.7 GM/DL (6.4-8.2)
[2022-04-03 06:36] LABS: BILIRUBIN,TOTAL 0.4 MG/DL (0.1-1.0)
[2022-04-03 06:38] LABS: CREATININE SERUM 1.99 MG/DL (0.60-1.30)
[2022-04-03 06:41] LABS: MAGNESIUM 1.7 MG/DL (1.6-2.4)
[2022-04-03] MEDS: RT-ALBUTEROL SULF 2.5 MG/3 ML PRE-MIX VIAL INH SCH ×2 (07:20→22:04)
[2022-04-03] MEDS ORDERED: NON-FORMULARY MEDICATION 1 EA EA (Escitalopram Oxalate 10 MG) PO SCH (09:00)
[2022-04-03] MEDS: NYSTATIN OINTMENT 30 GM TUBE TOP SCH ×2 (09:00→19:51)
--- NOTE | 2022-04-03 10:22 | Progress Note - Cardiology ---
Cardiology SOAP Progress Note Subjective: Sitting up in bed No c/o CP, SOB, palpitations Objective: I&O/Vital Signs 04/03/22 04/03/22 04/04/22 04/04/22 20:00 20:30 00:05 01:00 Temp 36.2 36.6 Pulse 77 79 70 Resp 20 18 B/P (MAP) 171/110 (130) 155/81 (105) Pulse Ox 94 91 O2 Delivery Room Air Room Air Room Air O2 Flow Rate 2.00 2.00 2.00 04/04/22 04/04/22 04:08 07:21 Temp 36.4 Pulse 72 Resp 18 B/P (MAP) 129/79 (96) Pulse Ox 93 94 O2 Delivery Room Air 04/04/22 00:00 Intake Total 1150 ml Output Total 3450 ml Balance -2300 ml Constitutional: AAO x 3, well-developed, well-nourished Respiratory: No accessory muscle use; other (fair air entry, basal fine and coarse crackles) Cardiovascular: regular rate-rhythm, systolic murmur (soft VERNA at card base) Gastrointestional: No tender; soft; No guarding, No rebound; audible bowel sounds Extremities: swelling (2+ edema of the legs); No clubbing, No cyanosis Neurologic/Psychiatric: other (appears to be able to move all limbs) Skin: No rash on exposed areas, No ulcerations on exposed areas Results/Procedures: Labs Laboratory Tests 04/04/22 06:16: White Blood Count 3.9L, Red Blood Count 3.74L, Hemoglobin 11.2L, Hematocrit 35, Mean Corpuscular Volume 93, Mean Corpuscular Hemoglobin 30, Mean Corpuscular Hemoglobin Concent 32, Red Cell Distribution Width 13.8, Platelet Count 109L, Mean Platelet Volume 9.6, Immature Granulocyte % (Auto) 0, Neutrophils (%) (Auto) 53, Lymphocytes (%) (Auto) 31, Monocytes (%) (Auto) 10, Eosinophils (%) (Auto) 4, Basophils (%) (Auto) 1, Neutrophils # (Auto) 2.1, Lymphocytes # (Auto) 1.2, Monocytes # (Auto) 0.4, Eosinophils # (Auto) 0.2, Basophils # (Auto) 0.1, Immature Granulocyte # (Auto) 0.0, Percent Immature Platelet Fraction 1.9, Sodium Level 142, Potassium Level 4.0, Chloride Level 102, Carbon Dioxide Level 29, Anion Gap 11, Blood Urea Nitrogen 31H, Creatinine 1.91H, Estimat Glomerular Filtration Rate 32, BUN/Creatinine Ratio 16, Glucose Level 203H, Calcium Level 9.1, Corrected Calcium 9.7, Total Bilirubin 0.3, Aspartate Amino Transf (AST/SGOT) 21, Alanine Aminotransferase (ALT/SGPT) 20, Alkaline Phosphatase 84, Total Protein 6.4, Albumin 3.3 A/P: Assessment: Ac systolic CHF due to dilated cardiomyopathy - she reports a negative cath with Dr Woodson at [facility] 3-4 years ago - Echo on 04/02/22: LVEF 40-45%, mild conc LVH CKD 3-4 Hypertension SSS and h/o PAF Sinus oneil and nonspecific IVCD on ECG, probably chronic, on ECGs of 04/01 and 04/02/22 Seizure disorder - managed by medical services Plan: * Treat with diuretics - adjust to tolerance * Treat cautiously with low dose carvedilol * Add Jardiance for heart failure * Does not appear suitable for ROSEMARIE-inhib or ARB or spironolactone at this time, given considerable renal failure * Monitor labs closely * [facility] today WENCESLAO CUNNINGHAM Apr 03, 2022 10:22
[2022-04-03] MEDS ORDERED: REGADENOSON 0.4 MG/5 ML SYR (LEXISCAN) IV ONE ×2 (11:17→11:45)
[2022-04-03] MEDS: APIXABAN 5 MG (ELIQUIS) TABLET PO SCH ×2 (12:36→19:46)
[2022-04-03] MEDS: amLODIPine 5 MG (NORVASC) TAB PO SCH (12:36)
[2022-04-03] MEDS: FUROSEMIDE 40 MG/4 ML INJ (LASIX) IVP SCH (12:36)
[2022-04-03] MEDS: FERROUS SULF 325 MG (IRON) TAB PO SCH (12:37)
[2022-04-03] MEDS: DIVALPROEX 250 MG DELAYED RELEASE (DEPAKOTE) TAB PO SCH ×2 (12:37→19:47)
[2022-04-03] MEDS: ASPIRIN 81 MG CHEW (CHILDREN'S ASA) PO SCH (12:38)
[2022-04-03] MEDS: FOLIC ACID 1 MG TAB PO SCH (12:38)
[2022-04-03] MEDS: SENNOSIDES 8.6 MG (SENOKOT) TAB PO SCH ×2 (12:39→19:49)
[2022-04-03] MEDS: DOCUSATE SODIUM 100 MG (COLACE) CAP PO SCH ×2 (12:39→19:49)
--- NOTE | 2022-04-03 13:30 | Diagnostic Imaging Report ---
INDICATION: Chest pain. COMPARISON: 04/01/2022. FINDINGS: There is bibasilar atelectasis, consistent with a Pickwickian appearance. I could not exclude small pleural effusions. The heart is mildly enlarged. The upper lungs are clear with no evidence of pulmonary edema. IMPRESSION: Cardiomegaly with low lung volumes. Possible small pleural effusions. Little overall change since the previous exam. Dictated by: Dictated on workstation # [id number]
--- NOTE | 2022-04-03 13:51 | Progress Note ---
Subjective Subjective Date Seen by Provider: Apr 03, 2022 Time Seen by Provider: 09:00 Pt being seen in f/u for chest pain and new onset CHF. Pt is up in bed stating she is very tired this morning. She is slow to respond, but states she is still having chest pain with movement. The pain comes when she twists or tries to roll over, lasts a few seconds or sometimes minutes then subsides. On admission the pain was a 7/10, but its currently a 5/10. Pt initially reports she has no SOA, but then later states she does have SOA but its improved since admission. Her only other concern is a headache that she has had since being admitted, which she attributes to not having her insulin. Pt denies fever, chills, chest pressure, cough, trouble with urination, numbness or weakness. Review of Systems General: No Chills; Fatigue, Malaise HEENT: Head Aches; No Sinus Congestion, No Sore Throat Pulmonary: Dyspnea Cardiovascular: Chest Pain (with movement); No: Palpitations Gastrointestinal: No: Nausea, Vomiting, Diarrhea, Constipation Genitourinary: No Dysuria, No Frequency Neurological: No: Weakness, Numbness Objective Exam Vital Signs Vital Signs Date Time Temp Pulse Resp B/P (MAP) Pulse Ox O2 Delivery O2 Flow Rate FiO2 04/03/22 12:51 36.5 71 18 136/82 (100) 95 Room Air 04/03/22 11:25 69 160/67 (98) 97 04/03/22 08:17 36.4 71 18 126/63 (84) 93 Room Air 04/03/22 08:00 93 Room Air 04/03/22 07:51 36.4 71 18 126/63 (84) 93 Room Air 04/03/22 07:21 92 04/03/22 07:00 69 04/03/22 04:00 36.9 74 16 135/74 (94) 92 Room Air 04/03/22 01:00 81 04/03/22 00:00 37.0 79 16 139/79 (99) 94 Room Air 04/02/22 20:42 91 04/02/22 20:00 Room Air 04/02/22 19:36 36.1 72 18 145/74 (97) 91 Room Air 04/02/22 19:00 70 04/02/22 15:08 63 145/77 (99) I & O 04/03/22 07:00 Intake Total 880 ml Output Total 3875 ml Balance -2995 ml General Appearance: No Apparent Distress, WD/WN Eyes: Right Eye Normal Inspection, Right Eye PERRL HEENT: PERRL/EOMI, Moist Mucous Membranes Neck: Full Range of Motion, Normal Inspection, Non Tender Respiratory: No Accessory Muscle Use, No Respiratory Distress, Decreased Breath Sounds Cardiovascular: Regular Rate, Rhythm, No Murmur Gastrointestinal: Normal Bowel Sounds, No Organomegaly, Non Tender, Soft Extremity: Normal Capillary Refill, Normal Inspection, Pedal Edema (1+ pitting edema bilaterally) Neurologic/Psychiatric: Alert, Oriented x3, Depressed Affect Skin: Normal Color, Warm/Dry Lymphatic: No Adenopathy Results Lab Laboratory Tests 04/03/22 06:05: White Blood Count 4.4, Red Blood Count 3.43L, Hemoglobin 10.4L, Hematocrit 33L, Mean Corpuscular Volume 96, Mean Corpuscular Hemoglobin 30, Mean Corpuscular Hemoglobin Concent 32, Red Cell Distribution Width 13.9, Platelet Count 95L, Mean Platelet Volume 9.8, Immature Granulocyte % (Auto) 0, Neutrophils (%) (Auto) 56, Lymphocytes (%) (Auto) 28, Monocytes (%) (Auto) 12, Eosinophils (%) (Auto) 3, Basophils (%) (Auto) 1, Neutrophils # (Auto) 2.4, Lymphocytes # (Auto) 1.2, Monocytes # (Auto) 0.5, Eosinophils # (Auto) 0.1, Basophils # (Auto) 0.0, Immature Granulocyte # (Auto) 0.0, Percent Immature Platelet Fraction 1.1, Sodium Level 140, Potassium Level 4.3, Chloride Level 105, Carbon Dioxide Level 24, Anion Gap 11, Blood Urea Nitrogen 32H, Creatinine 1.99H, Estimat Glomerular Filtration Rate 30, BUN/Creatinine Ratio 16, Glucose Level 218H, Calcium Level 8.5, Corrected Calcium 9.4, Magnesium Level 1.7, Total Bilirubin 0.4, Aspartate Amino Transf (AST/SGOT) 27, Alanine Aminotransferase (ALT/SGPT) 15, Alkaline Phosphatase 64, Total Protein 5.7L, Albumin 2.9L Assessment/Plan Assessment/Plan Admission Dx Acute CHF exacerbation Admission Status: Inpatient Order (span 2 midnights) Assessment and Plan New onset CHF with acute exacerbation Chest pain-positional Hx of CVA and senior care placement in 46 yo HTN HLD Afib TIIDM Hx of epilepsy New onset CHF with acute exacerbation -Lasix 40mg IV with good urine output via hernandez catheter -Repeat CXR similar to previous studies -Cardiology consulted, appreciate their recommendations Chest pain-positional -Troponins wnl -Awaiting stress test results Hx of CVA and senior care placement in 46 yo Hx of cardiomyopathy -Cardiology consulted HTN -Currently controlled HLD Afib -Continue eliquis TIIDM -SSI Hx of Epilepsy -Keppra continued from home meds Supervisory-Addendum Brief Verification & Attestation Participated in pt care: history, physical Personally performed: exam, history Care discussed with: Medical Student Procedures: n/a Verification and Attestation of Medical Student E/M Service A medical student performed and documented this service in my presence. I reviewed and verified all information documented by the medical student and made modifications to such information, when appropriate. I personally performed the physical exam and medical decision making. Tanika Bautista, Apr 03, 2022,15:23 Acute Systolic CHF, New onset Dilated Cardiomyopathy PAF Sick Sinus Syndrome HTN -Cardiology consulted and managing, Stress test today results pending Acute on Chronic CKD 3 - Trending Cr NIDDM - A1c ordered today pending Sz D/o - Continue home meds H/o CVA Dispo: Will d/c back to [facility] at discharge ASTON LUNDBERG MED STUDENT Apr 03, 2022 13:51 TANIKA BAUTISTA MD Apr 03, 2022 15:23
--- NOTE | 2022-04-03 14:42 | Progress Note - Cardiology ---
Cardiology SOAP Progress Note Subjective: No cp or palp or syncope Shortness of breath much improved Gen malaise much improved Leg swelling much improved No focal weakness. Does note some postural dizziness No n/v/d Objective: I&O/Vital Signs 04/03/22 04/03/22 04/03/22 04/03/22 04:00 07:00 07:21 07:51 Temp 36.9 36.4 Pulse 74 69 71 Resp 16 18 B/P (MAP) 135/74 (94) 126/63 (84) Pulse Ox 92 92 93 O2 Delivery Room Air Room Air 04/03/22 04/03/22 04/03/22 04/03/22 08:00 08:17 11:25 12:51 Temp 36.4 36.5 Pulse 71 69 71 Resp 18 18 B/P (MAP) 126/63 (84) 160/67 (98) 136/82 (100) Pulse Ox 93 93 97 95 O2 Delivery Room Air Room Air Room Air 04/03/22 13:37 Pulse 70 04/03/22 00:00 Intake Total 880 ml Output Total 3175 ml Balance -2295 ml Constitutional: AAO x 3, well-developed, well-nourished Respiratory: No accessory muscle use; other (fair air entry, basal fine and coarse crackles) Cardiovascular: regular rate-rhythm, systolic murmur (soft VERNA at card base) Gastrointestional: No tender; soft; No guarding, No rebound; audible bowel sounds Extremities: swelling (2+ edema of the legs); No clubbing, No cyanosis Neurologic/Psychiatric: other (appears to be able to move all limbs) Skin: No rash on exposed areas, No ulcerations on exposed areas Results/Procedures: Labs Laboratory Tests 04/03/22 06:05: White Blood Count 4.4, Red Blood Count 3.43L, Hemoglobin 10.4L, Hematocrit 33L, Mean Corpuscular Volume 96, Mean Corpuscular Hemoglobin 30, Mean Corpuscular Hemoglobin Concent 32, Red Cell Distribution Width 13.9, Platelet Count 95L, Mean Platelet Volume 9.8, Immature Granulocyte % (Auto) 0, Neutrophils (%) (Auto) 56, Lymphocytes (%) (Auto) 28, Monocytes (%) (Auto) 12, Eosinophils (%) (Auto) 3, Basophils (%) (Auto) 1, Neutrophils # (Auto) 2.4, Lymphocytes # (Auto) 1.2, Monocytes # (Auto) 0.5, Eosinophils # (Auto) 0.1, Basophils # (Auto) 0.0, Immature Granulocyte # (Auto) 0.0, Percent Immature Platelet Fraction 1.1, Sodium Level 140, Potassium Level 4.3, Chloride Level 105, Carbon Dioxide Level 24, Anion Gap 11, Blood Urea Nitrogen 32H, Creatinine 1.99H, Estimat Glomerular Filtration Rate 30, BUN/Creatinine Ratio 16, Glucose Level 218H, Calcium Level 8.5, Corrected Calcium 9.4, Magnesium Level 1.7, Total Bilirubin 0.4, Aspartate Amino Transf (AST/SGOT) 27, Alanine Aminotransferase (ALT/SGPT) 15, Alkaline Phosphatase 64, Total Protein 5.7L, Albumin 2.9L Laboratory Tests 04/02/22 05:32 04/03/22 06:05 A/P: Assessment: Ac systolic CHF due to dilated cardiomyopathy - she reports a negative cath with Dr Woodson at [facility] 3-4 years ago - Echo on 04/02/22: LVEF 40-45%, mild conc LVH - MPI on 04/03/22: dilated LV w/o evidence of significant ischemia or infarction CKD 3-4 Hypertension SSS and h/o PAF Sinus oneil and nonspecific IVCD on ECG, probably chronic, on ECGs of 04/01 and 04/02/22 Seizure disorder - managed by medical services Plan: * Treat with diuretics - adjust to tolerance * Treat cautiously with low dose carvedilol * Add Jardiance for heart failure * Does not appear suitable for ROSEMARIE-inhib or ARB or spironolactone at this time, given considerable renal failure * Monitor labs closely. Renal function shows some worsening WICHO KHALIL MD FACP [facility] Apr 03, 2022 14:42
[2022-04-03] MEDS: NYSTATIN CREAM (MYCOSTATIN) 30 GM TUBE TP SCH ×3 (15:45→19:51)
--- NOTE | 2022-04-03 19:19 | STRESS TEST ---
DATE OF SERVICE: 04/03/2022 RESTING AND POST REGADENOSON TECHNETIUM-99M TETROFOSMIN SPECT CT IMAGING ORDERING PHYSICIAN: Dr. Edouard. PRIMARY PHYSICIAN: Dr. Bautista. CLINICAL DIAGNOSIS: Dilated cardiomyopathy. Baseline images were carried out after injection of 10.83 mCi of technetium-99m Tetrofosmin. This was followed by 0.4 mg Regadenoson and 33 mCi of technetium-99m Tetrofosmin for stress imaging. The electrocardiogram showed sinus rhythm at baseline. QRS complexes in the limb leads were small and gating could not be carried out. The electrocardiogram showed nonspecific intraventricular conduction delay at baseline. It did not change significantly with the Regadenoson infusion. Review of images at rest and following stress indicates a large left ventricular cavity size. Gating could not be carried out. There is a patchy tracer uptake, consistent with cardiomyopathy. There does not appear to be distinct evidence of significant myocardial ischemia or infarction. CONCLUSIONS: 1. Dilated left ventricle. 2. No distinct evidence of significant myocardial ischemia or infarction. 3. Gating could not be carried out. Job ID: [id number] DocumentID: [id number] Dictated Date: 04/03/2022 13:06:35 Supervisor Records Change Date: 04/03/2022 19:18:42 Dictated By: WICHO EDOUARD MD, MA, FACP, FACC,
[2022-04-03] MEDS: OLANZapine 2.5 MG (ZyPREXA) TAB PO SCH (19:46)
[2022-04-03] MEDS: EUCERIN CREAM 4 OZ JAR (HYDROCERIN) TP SCH (19:49)
[2022-04-04 00:05] VITALS: BP 155/81
[2022-04-04 04:08] VITALS: BP 129/79
[2022-04-04] MEDS: CATHETER FLUSH 10 ML SYR IVP SCH ×2 (06:18→14:27)
[2022-04-04] MEDS: KCL 20 MEQ TAB (K-DUR) PO SCH (06:18)
[2022-04-04] MEDS: hydrALAZINE (APRESOLINE) 25 MG TAB PO SCH ×2 (06:18→14:27)
[2022-04-04 06:26] LABS: BASOPHILS # (AUTO) 0.1 10^3/uL (0.0-0.1); BASOPHILS % (AUTO) 1 % (0-10)
[2022-04-04 06:28] LABS: EOSINOPHILS # (AUTO) 0.2 10^3/uL (0.0-0.3); EOSINOPHILS % (AUTO) 4 % (0-10); HEMATOCRIT 35 % (35-52); HEMOGLOBIN 11.2 g/dL (11.5-16.0); LYMPHOCYTES # (AUTO) 1.2 10^3/uL (1.0-4.0); LYMPHOCYTES % (AUTO) 31 % (12-44); MEAN CORPUSCULAR HEMOGLOBIN 30 pg (25-34); MEAN CORPUSCULAR HGB CONC 32 g/dL (32-36); MEAN CORPUSCULAR VOLUME 93 fL (80-99); MEAN PLATELET VOLUME 9.6 fL (9.0-12.2); MONOCYTES # (AUTO) 0.4 10^3/uL (0.0-1.0); MONOCYTES % (AUTO) 10 % (0-12); NEUTROPHILS # (AUTO) 2.1 10^3/uL (1.8-7.8); NEUTROPHILS % (AUTO) 53 % (42-75); PLATELET COUNT 109 10^3/uL (130-400); WHITE BLOOD COUNT 3.9 10^3/uL (4.3-11.0)
[2022-04-04 06:53] LABS: ALBUMIN 3.3 GM/DL (3.2-4.5); BILIRUBIN,TOTAL 0.3 MG/DL (0.1-1.0); CALCIUM 9.1 MG/DL (8.5-10.1); CREATININE SERUM 1.91 MG/DL (0.60-1.30); TOTAL PROTEIN 6.4 GM/DL (6.4-8.2)
[2022-04-04] MEDS: RT-ALBUTEROL SULF 2.5 MG/3 ML PRE-MIX VIAL INH SCH (07:19)
[2022-04-04] MEDS: APIXABAN 5 MG (ELIQUIS) TABLET PO SCH (08:06)
[2022-04-04] MEDS: FOLIC ACID 1 MG TAB PO SCH (08:07)
[2022-04-04] MEDS: SENNOSIDES 8.6 MG (SENOKOT) TAB PO SCH (08:07)
[2022-04-04] MEDS: amLODIPine 5 MG (NORVASC) TAB PO SCH (08:07)
[2022-04-04] MEDS: FERROUS SULF 325 MG (IRON) TAB PO SCH (08:07)
[2022-04-04] MEDS: ASPIRIN 81 MG CHEW (CHILDREN'S ASA) PO SCH (08:07)
[2022-04-04] MEDS: NYSTATIN OINTMENT 30 GM TUBE TOP SCH (08:08)
[2022-04-04] MEDS: NYSTATIN CREAM (MYCOSTATIN) 30 GM TUBE TP SCH ×2 (08:08→14:27)
[2022-04-04] MEDS: DOCUSATE SODIUM 100 MG (COLACE) CAP PO SCH (08:09)
[2022-04-04] MEDS: FUROSEMIDE 40 MG/4 ML INJ (LASIX) IVP SCH (08:09)
[2022-04-04] MEDS: DIVALPROEX 250 MG DELAYED RELEASE (DEPAKOTE) TAB PO SCH (08:11)
[2022-04-04 08:20] VITALS: BP 145/83
[2022-04-04] MEDS ORDERED: LACOSAMIDE 100 MG PO SCH (11:00)
--- NOTE | 2022-04-04 11:19 | Progress Note - Cardiology ---
Cardiology SOAP Progress Note Objective: I&O/Vital Signs 04/04/22 04/04/22 04/04/22 04/04/22 00:05 01:00 04:08 07:21 Temp 36.6 36.4 Pulse 79 70 72 Resp 18 18 B/P (MAP) 155/81 (105) 129/79 (96) Pulse Ox 91 93 94 O2 Delivery Room Air Room Air 04/04/22 04/04/22 04/04/22 07:42 08:00 08:20 Temp 36.3 Pulse 79 77 Resp 18 B/P (MAP) 145/83 (103) Pulse Ox 93 91 O2 Delivery Room Air Room Air 04/04/22 00:00 Intake Total 1150 ml Output Total 3450 ml Balance -2300 ml Constitutional: AAO x 3, well-developed, well-nourished Respiratory: No accessory muscle use; other (fair air entry, basal fine and coarse crackles) Cardiovascular: regular rate-rhythm, systolic murmur (soft VERNA at card base) Gastrointestional: No tender; soft; No guarding, No rebound; audible bowel sounds Extremities: swelling (2+ edema of the legs); No clubbing, No cyanosis Neurologic/Psychiatric: other (appears to be able to move all limbs) Skin: No rash on exposed areas, No ulcerations on exposed areas Results/Procedures: Labs Laboratory Tests 04/04/22 06:16: White Blood Count 3.9L, Red Blood Count 3.74L, Hemoglobin 11.2L, Hematocrit 35, Mean Corpuscular Volume 93, Mean Corpuscular Hemoglobin 30, Mean Corpuscular Hemoglobin Concent 32, Red Cell Distribution Width 13.8, Platelet Count 109L, Mean Platelet Volume 9.6, Immature Granulocyte % (Auto) 0, Neutrophils (%) (Auto) 53, Lymphocytes (%) (Auto) 31, Monocytes (%) (Auto) 10, Eosinophils (%) (Auto) 4, Basophils (%) (Auto) 1, Neutrophils # (Auto) 2.1, Lymphocytes # (Auto) 1.2, Monocytes # (Auto) 0.4, Eosinophils # (Auto) 0.2, Basophils # (Auto) 0.1, Immature Granulocyte # (Auto) 0.0, Percent Immature Platelet Fraction 1.9, Sodium Level 142, Potassium Level 4.0, Chloride Level 102, Carbon Dioxide Level 29, Anion Gap 11, Blood Urea Nitrogen 31H, Creatinine 1.91H, Estimat Glomerular Filtration Rate 32, BUN/Creatinine Ratio 16, Glucose Level 203H, Calcium Level 9.1, Corrected Calcium 9.7, Total Bilirubin 0.3, Aspartate Amino Transf (AST/SGOT) 21, Alanine Aminotransferase (ALT/SGPT) 20, Alkaline Phosphatase 84, Total Protein 6.4, Albumin 3.3 Laboratory Tests 04/03/22 06:05 04/04/22 06:16 A/P: Assessment: Ac systolic CHF due to dilated cardiomyopathy - she reports a negative cath with Dr Woodson at [facility] 3-4 years ago - Echo on 04/02/22: LVEF 40-45%, mild conc LVH - MPI on 04/03/22: dilated LV w/o evidence of significant ischemia or infarction CKD 3-4 Hypertension SSS and h/o PAF Sinus oneil and nonspecific IVCD on ECG, probably chronic, on ECGs of 04/01 and 04/02/22 Seizure disorder - managed by medical services Plan: * Continue diuetics - change to oral starting tomorrow * Tolerating low dose Coreg - titrate dose up * Continue Jardiance for heart failure * Does not appear suitable for ROSEMARIE-inhib or ARB or spironolactone at this time, given considerable renal failure * Monitor labs closely. * Renal function shows essentially unchanged from yesterday WENCESLAO CUNNINGHAM Apr 04, 2022 11:19
[2022-04-04] MEDS ORDERED: CARV6.252 PO (11:33)
[2022-04-04 11:43] VITALS: BP 145/83
--- NOTE | 2022-04-04 11:50 | Discharge Summary ---
Discharge Summary Reconcile Patient Problems Problems Reviewed?: Yes Hospital Course Hospital Course Date of Admission: Apr 01, 2022 at 14:09 Admission Diagnosis : Family Physician/Provider: Liset Zarate DO Date of Discharge: 04/04/22 Discharge Diagnosis: New onset systolic CHF Dilated Cardiomyopathy PAF Sick Sinus Syndrome HTN Acute on Chronic CKD 3 NIDDM Sz d/o h/o CVA Labs and Pending Lab Test: Laboratory Tests 04/04/22 06:16: White Blood Count 3.9L, Red Blood Count 3.74L, Hemoglobin 11.2L, Hematocrit 35, Mean Corpuscular Volume 93, Mean Corpuscular Hemoglobin 30, Mean Corpuscular Hemoglobin Concent 32, Red Cell Distribution Width 13.8, Platelet Count 109L, M annie Platelet Volume 9.6, Immature Granulocyte % (Auto) 0, Neutrophils (%) (Auto) 53, Lymphocytes (%) (Auto) 31, Monocytes (%) (Auto) 10, Eosinophils (%) (Auto) 4, Basophils (%) (Auto) 1, Neutrophils # (Auto) 2.1, Lymphocytes # (Auto) 1.2, Monocytes # (Auto) 0.4, Eosinophils # (Auto) 0.2, Basophils # (Auto) 0.1, Immature Granulocyte # (Auto) 0.0, Percent Immature Platelet Fraction 1.9, Sodium Level 142, Potassium Level 4.0, Chloride Level 102, Carbon Dioxide Level 29, Anion Gap 11, Blood Urea Nitrogen 31H, Creatinine 1.91H, Estimat Glomerular Filtration Rate 32, BUN/Creatinine Ratio 16, Glucose Level 203H, Calcium Level 9.1, Corrected Calcium 9.7, Total Bilirubin 0.3, Aspartate Amino Transf (AST/S GOT) 21, Alanine Aminotransferase (ALT/SGPT) 20, Alkaline Phosphatase 84, Total Protein 6.4, Albumin 3.3 Home Meds Active Carvedilol 6.25 Mg Tablet 6.25 Mg PO BID Reported Eucerin Creme (Mineral Oil/Petrolatum,White) 113 Gm Cream..g. 1 Gm TP HS apply to affected area at hs for dry skin Milk of Magnesia (Magnesium Hydroxide) 400 Mg/5 Ml Oral.susp 30 Ml PO DAILY PRN Colace (Docusate Sodium) 100 Mg Capsule 100 Mg PO DAILY PRN Acetaminophen 325 Mg Tablet 650 Mg PO Q6H PRN TAKES 2 (325MG) TAB PRN FOR PAIN OR TEMP >100.2 Metoprolol Tartrate 25 Mg Tablet 37.5 Mg PO BID TAKES 1 AND 1/2 OF (25MG) TAB HOLD FOR SBP <90 OR PULSE <60 Levetiracetam 750 Mg Tablet 750 Mg PO BID Lacosamide 100 Mg Tablet 100 Mg PO BID Divalproex Sodium 500 Mg Tablet.dr 500 Mg PO BID Eliquis (Apixaban) 5 Mg Tablet 5 Mg PO BID Olanzapine 2.5 Mg Tablet 2.5 Mg PO HS Furosemide 40 Mg Tablet 40 Mg PO DAILY Foltx Tablet (B12/Levomefolate Calcium/B-6) 2 Mg-1.13 Mg-25 Mg Tablet 1 Tab PO DAILY Iron (Ferrous Sulfate) 325 Mg (65 Mg Iron) Tablet 325 Mg PO DAILY Escitalopram Oxalate 10 Mg Tablet 10 Mg PO DAILY Atorvastatin Calcium 40 Mg Tablet 40 Mg PO HS Aspirin 81 Mg Tab.chew 81 Mg PO DAILY Amlodipine Besylate 5 Mg Tablet 5 Mg PO DAILY hold sbp <110 Skilled NF Admit to: [facility] Certification (SNF) I certify that SNF services are required to be given on an inpatient basis because of the above named patient's need for long term care on a continuing basis for the conditions(s) for which he/she was receiving inpatient hospital services prior to his/her transfer to the SNF. Residential Facility Order: Nursing Services, Physical Therapy-Evaluate & Treat Oxygen Delivery Method: Room Air Discharge Diet: Cardiac Diet Daily Activity as Tolerated: Yes Resuscitation Status: Full Code New & Resume Previous Orders Daily BMPs x 4 days to monitor Creatinine and kidney function Otherwise resume previous orders Tanika Bautista Apr 04, 2022 11:46 Discharge Physical Exam General: Alert, Oriented X3, No Acute Distress Lungs: Clear to Auscultation, Normal Air Movement Heart: Regular Rate, No Murmurs Abdomen: Normal Bowel Sounds, Soft, No Tenderness Extremities: No Edema, No Tenderness/Swelling Neuro: Normal Speech, Strength at 5/5 X4 Ext Psych/Mental Status: Mental Status NL, Mood NL TANIKA BAUTISTA MD Apr 04, 2022 11:50
--- NOTE | 2022-04-04 14:48 | Progress Note - Cardiology ---
Cardiology SOAP Progress Note Subjective: No cp or palp or syncope Gen malaise and weakness Shortness of breath better No n/v/d Objective: I&O/Vital Signs 04/04/22 04/04/22 04/04/22 04/04/22 04:08 07:21 07:42 08:00 Temp 36.4 Pulse 72 79 Resp 18 B/P (MAP) 129/79 (96) Pulse Ox 93 94 93 O2 Delivery Room Air Room Air 04/04/22 04/04/22 08:20 11:43 Temp 36.3 36.6 Pulse 77 79 Resp 18 18 B/P (MAP) 145/83 (103) 145/83 (103) Pulse Ox 91 92 O2 Delivery Room Air Room Air 04/04/22 00:00 Intake Total 1150 ml Output Total 3450 ml Balance -2300 ml Constitutional: AAO x 3, well-developed, well-nourished Respiratory: No accessory muscle use; other (fair air entry, basal fine and coarse crackles) Cardiovascular: regular rate-rhythm, systolic murmur (soft VERNA at card base) Gastrointestional: No tender; soft; No guarding, No rebound; audible bowel sounds Extremities: swelling (2+ edema of the legs); No clubbing, No cyanosis Neurologic/Psychiatric: other (appears to be able to move all limbs) Skin: No rash on exposed areas, No ulcerations on exposed areas Results/Procedures: Labs Laboratory Tests 04/04/22 06:16: White Blood Count 3.9L, Red Blood Count 3.74L, Hemoglobin 11.2L, Hematocrit 35, Mean Corpuscular Volume 93, Mean Corpuscular Hemoglobin 30, Mean Corpuscular Hemoglobin Concent 32, Red Cell Distribution Width 13.8, Platelet Count 109L, Mean Platelet Volume 9.6, Immature Granulocyte % (Auto) 0, Neutrophils (%) (Auto) 53, Lymphocytes (%) (Auto) 31, Monocytes (%) (Auto) 10, Eosinophils (%) (Auto) 4, Basophils (%) (Auto) 1, Neutrophils # (Auto) 2.1, Lymphocytes # (Auto) 1.2, Monocytes # (Auto) 0.4, Eosinophils # (Auto) 0.2, Basophils # (Auto) 0.1, Immature Granulocyte # (Auto) 0.0, Percent Immature Platelet Fraction 1.9, Sodium Level 142, Potassium Level 4.0, Chloride Level 102, Carbon Dioxide Level 29, Anion Gap 11, Blood Urea Nitrogen 31H, Creatinine 1.91H, Estimat Glomerular Filtration Rate 32, BUN/Creatinine Ratio 16, Glucose Level 203H, Calcium Level 9.1, Corrected Calcium 9.7, Total Bilirubin 0.3, Aspartate Amino Transf (AST/SGOT) 21, Alanine Aminotransferase (ALT/SGPT) 20, Alkaline Phosphatase 84, Total Protein 6.4, Albumin 3.3 A/P: Assessment: Ac systolic CHF due to dilated cardiomyopathy - she reports a negative cath with Dr Woodson at [facility] 3-4 years ago - Echo on 04/02/22: LVEF 40-45%, mild conc LVH - MPI on 04/03/22: dilated LV w/o evidence of significant ischemia or infarction CKD 3-4 Hypertension SSS and h/o PAF Sinus oneil and nonspecific IVCD on ECG, probably chronic, on ECGs of 04/01 and 04/02/22 Seizure disorder - managed by medical services Plan: * Continue diuetics - change to oral * Tolerating low dose Coreg - titrate dose up * Continue Jardiance for heart failure * Does not appear suitable for ROSEMARIE-inhib or ARB or spironolactone at this time, given considerable renal failure * Monitor labs closely. * Renal function shows essentially unchanged from yesterday * I discussed her case with Dr Bautista this am. Dr Bautista plans f/u on renal function qd for at least 4 days as an outpatient * Cardiac f/u advised for next week WICHO KHALIL MD [facility] Apr 04, 2022 14:48
[2022-04-04 15:17] VITALS: BP 145/83
[2022-04-05] MEDS ORDERED: FUROSEMIDE 40 MG (LASIX) TAB PO SCH (09:00)
== END 2022-04-04 14:51 ==
LOC: EDUNIT# 10:49 → ER 10:51 → INTOOBSV 14:09 → CSD 14:09 → 4TH 04-02 14:08
PROVIDERS: ADMIT Internal Medicine; ATTEND Family Medicine
DX: I13.0 Hypertensive heart and chronic kidney disease with heart failure and stage 1 through stage 4 chronic kidney disease, or unspecified chronic kidney disease (principal); E11.22 Type 2 diabetes mellitus with diabetic chronic kidney disease; I42.0 Dilated cardiomyopathy; N18.30 Chronic kidney disease, stage 3 unspecified; I48.0 Paroxysmal atrial fibrillation; I49.5 Sick sinus syndrome; G40.909 Epilepsy, unspecified, not intractable, without status epilepticus; Z86.73 Personal history of transient ischemic attack (TIA), and cerebral infarction without residual deficits; Z79.899 Other long term (current) drug therapy; Z79.01 Long term (current) use of anticoagulants; Z79.82 Long term (current) use of aspirin; I50.21 Acute systolic (congestive) heart failure; E78.5 Hyperlipidemia, unspecified; F32.A Depression, unspecified
CPT/HCPCS: 71045 ×2; 78452; 80053 ×4; 80061; 83036; 83735 ×2; 83874; 83880; 84484 ×2; 85025 ×4; 85610; 85730; 93005 ×4; 93041; 94640 ×4; 96376 ×3; 99284; A9502; C8929; G0378 ×2; 36415; 93306

== ENCOUNTER 2022-04-22 14:05 | Emergency (ER) | payer BC, MEDICAID ==
[~2022-04-22] VITALS: Ht 172 cm; Wt 104.2 kg
[~2022-04-22 14:05] MED LIST changes: +ACET325T49 PO; +AMLO-250 PO; +APIX5TAB PO; +ASPI-999 PO; +ATOR40TA70 PO; +B12/1TAB PO; +CARV6.252 PO; +DIVA-76 PO; +DOCU-143 PO; +ESCI-2 PO; +FERR-84 PO; +FURO40TA4 PO; +LACO100T4 PO; +LEVE750T5 PO; +MAGN400O7 PO; +METO-333 PO; +MINE120C TP; +OLAN2.5T27 PO
--- NOTE | 2022-04-22 14:10 | ED Respiratory ---
General Chief Complaint: Respiratory Problems Stated Complaint: SOA Source: patient Exam Limitations: no limitations History of Present Illness Date Seen by Provider: Apr 22, 2022 Time Seen by Provider: 14:09 Initial Comments 46 y/o female presents by EMS from half-way. Pt c/o SOA x 2-3 days. custodial staff reported patient was hypoxic and placed her on 2 liters of oxygen. Pt states she has chronic productive cough. She denies chest pain, wheezing, fever, chills, headache, body aches, congestion. She reports h/o CHF and asthma. Timing/Duration: other (2-3 days) Prior Episodes/Possible Cause: occasional episodes Modifying Factors: Improves With Activity, Improves With Coughing Associated Symptoms: cough; No dizziness, No earache, No fever/chills, No headache, No lightheadedness, No muscle aches, No nasal congestion, No nasal drainage; shortness of breath; No sinus infection, No sore throat, No wheezing Allergies and Home Medications Allergies Coded Allergies: Penicillins (Verified Allergy, Unknown, 01/19/08) Patient Home Medication List Home Medication List Reviewed: Yes Acetaminophen (Acetaminophen) 325 Mg Tablet, 650 MG PO Q6H PRN for PAIN-MILD (1- 4), (Reported) Entered as Reported by: SOREN BOLANOS on 04/01/22 172 Apixaban (Eliquis) 5 Mg Tablet, 5 MG PO BID, (Reported) Entered as Reported by: SOREN BOLANOS on 04/01/22 172 Aspirin (Aspirin) 81 Mg Tab.chew, 81 MG PO DAILY, (Reported) Entered as Reported by: SOREN BOLANOS on 04/01/22 172 Atorvastatin Calcium (Atorvastatin Calcium) 40 Mg Tablet, 40 MG PO HS, (Reported) Entered as Reported by: SOREN BOLANOS on 04/01/22 1725 B12/Levomefolate Calcium/B-6 (Foltx Tablet) 2 Mg-1.13 Mg-25 Mg Tablet, 1 TAB PO DAILY, (Reported) Entered as Reported by: SOREN BOLANOS on 04/01/22 172 Carvedilol (Carvedilol) 6.25 Mg Tablet, 6.25 MG PO BID Prescribed by: WENCESLAO CUNNINGHAM on 04/04/22 1133 Divalproex Sodium (Divalproex Sodium) 500 Mg Tablet.dr, 500 MG PO BID, (Reported) Entered as Reported by: SOREN BOLANOS on 04/01/221724 Docusate Sodium (Colace) 100 Mg Capsule, 100 MG PO DAILY PRN for CONSTIPATION- 1ST LINE, (Reported) Entered as Reported by: SOREN BOLANOS on 04/01/221724 Escitalopram Oxalate (Escitalopram Oxalate) 10 Mg Tablet, 10 MG PO DAILY, (Reported) Entered as Reported by: SOREN BOLANOS on 04/01/221724 Ferrous Sulfate (Iron) 325 Mg (65 Mg Iron) Tablet, 325 MG PO DAILY, (Reported) Entered as Reported by: SOREN OBLANOS on 04/01/221724 Furosemide (Furosemide) 40 Mg Tablet, 40 MG PO DAILY, (Reported) Entered as Reported by: SOREN BOLANOS on 04/01/221724 Lacosamide (Lacosamide) 100 Mg Tablet, 100 MG PO BID, (Reported) Entered as Reported by: SOREN BOLANOS on 04/01/221724 Levetiracetam (Levetiracetam) 750 Mg Tablet, 750 MG PO BID, (Reported) Entered as Reported by: SOREN BOLANOS on 04/01/221724 Magnesium Hydroxide (Milk of Magnesia) 400 Mg/5 Ml Oral.susp, 30 ML PO DAILY PRN for CONSTIPATION-2ND LINE, (Reported) Entered as Reported by: SOREN BOLANOS on 04/01/221724 Mineral Oil/Petrolatum,White (Eucerin Creme) 113 Gm Cream..g., 1 GM TP HS, (Reported) Entered as Reported by: SOREN BOLANOS on 04/01/221724 Olanzapine (Olanzapine) 2.5 Mg Tablet, 2.5 MG PO HS, (Reported) Entered as Reported by: SOREN BOLANOS on 04/01/221724 Review of Systems Review of Systems Constitutional: No chills, No diaphoresis, No dizziness, No fever, No malaise, No weakness EENTM: No ear discharge, No mouth pain, No nose congestion, No throat pain Respiratory: cough, dyspnea on exertion; No hemoptysis; phlegm, short of breath; No wheezing Cardiovascular: No chest pain; edema; No palpitations Gastrointestinal: no symptoms reported Genitourinary: no symptoms reported Musculoskeletal: no symptoms reported Skin: no symptoms reported Hematologic/Lymphatic: No Symptoms Reported Past Hgmvves-Ezrzda-Wprpwm Hx Patient Social History Tobacco Use?: No Substance use?: No Alcohol Use?: No Immunizations Up To Date Second COVID19 Vaccination Jean Carlos: 02/2021 Past Medical History Surgery/Hospitalization HX: TYPE II DIABETIC, EPILEPSY HYPOTHYRODISM KIDNEY DISEASE STAGE 3 High Cholesterol, Hypertension Stroke Reproductive Disorders: No Physical Exam Vital Signs - First Documented 04/22/22 04/22/22 14:08 14:10 Temp 36.5 Pulse 72 Resp 16 B/P (MAP) 139/90 (106) Pulse Ox 94 O2 Delivery Room Air O2 Flow Rate 2.00 Capillary Refill : Height: '" Weight: lbs. oz. kg; 40.55 BMI Method:Stated General Appearance: WD/WN, no apparent distress HEENT: PERRL/EOMI, normal ENT inspection Neck: non-tender, full range of motion, supple Respiratory: chest non-tender, lungs clear, normal breath sounds, no respiratory distress Cardiovascular: normal peripheral pulses, regular rate, rhythm, no gallop, no murmur Extremities: normal range of motion, non-tender, normal capillary refill, pedal edema Neurologic/Psychiatric: no motor/sensory deficits, alert Skin: normal color, warm/dry Progress/Results/Core Measures Suspected Sepsis SIRS Temperature: Pulse: Respiratory Rate: Laboratory Tests 04/22/22 14:15: White Blood Count 4.3 Blood Pressure / Mean: Laboratory Tests 04/22/22 14:15: Creatinine 1.68H, Platelet Count 119L, Total Bilirubin 0.3 Results/Orders Lab Results Laboratory Tests Test 04/22/22 14:15 Range/Units White Blood Count 4.3 4.3-11.0 10^3/uL Red Blood Count 3.75 L 3.80-5.11 10^6/uL Hemoglobin 11.0 L 11.5-16.0 g/dL Hematocrit 34 L 35-52 % Mean Corpuscular Volume 91 80-99 fL Mean Corpuscular Hemoglobin 29 25-34 pg Mean Corpuscular Hemoglobin Concent 32 32-36 g/dL Red Cell Distribution Width 13.2 10.0-14.5 % Platelet Count 119 L 130-400 10^3/uL Mean Platelet Volume 9.8 9.0-12.2 fL Immature Granulocyte % (Auto) 0 % Neutrophils (%) (Auto) 50 42-75 % Lymphocytes (%) (Auto) 34 12-44 % Monocytes (%) (Auto) 11 0-12 % Eosinophils (%) (Auto) 4 0-10 % Basophils (%) (Auto) 1 0-10 % Neutrophils # (Auto) 2.2 1.8-7.8 X 10^3 Lymphocytes # (Auto) 1.4 1.0-4.0 X 10^3 Monocytes # (Auto) 0.5 0.0-1.0 X 10^3 Eosinophils # (Auto) 0.2 0.0-0.3 10^3/uL Basophils # (Auto) 0.0 0.0-0.1 10^3/uL Immature Granulocyte # (Auto) 0.0 0.0-0.1 10^3/uL Sodium Level 142 135-145 MMOL/L Potassium Level 3.7 3.6-5.0 MMOL/L Chloride Level 104 98-107 MMOL/L Carbon Dioxide Level 26 21-32 MMOL/L Anion Gap 12 5-14 MMOL/L Blood Urea Nitrogen 29 H 7-18 MG/DL Creatinine 1.68 H 0.60-1.30 MG/DL Estimat Glomerular Filtration Rate 37 BUN/Creatinine Ratio 17 Glucose Level 155 H 70-105 MG/DL Calcium Level 8.6 8.5-10.1 MG/DL Corrected Calcium 9.2 8.5-10.1 MG/DL Total Bilirubin 0.3 0.1-1.0 MG/DL Aspartate Amino Transf (AST/SGOT) 32 5-34 U/L Alanine Aminotransferase (ALT/SGPT) 25 0-55 U/L Alkaline Phosphatase 81 40-136 U/L Troponin I < 0.028 <0.028 NG/ML B-Type Natriuretic Peptide 610.0 H <100.0 PG/ML Total Protein 6.0 L 6.4-8.2 GM/DL Albumin 3.2 3.2-4.5 GM/DL My Orders Orders - SAMMIE KELLEY [employer] RECONDITIONER Comprehensive Metabolic Panel (04/22/22 14:14) Bnp Kianna (04/22/22 14:14) Troponin I Kianna (04/22/22 14:14) Cbc With Automated Diff (04/22/22 14:14) Chest Pa/Lat (2 View) (04/22/22 14:14) Ekg Tracing (04/22/22 14:14) Vital Signs/I&O 04/22/22 04/22/22 04/22/22 14:08 14:10 14:15 Temp 36.5 Pulse 72 Resp 16 B/P (MAP) 139/90 (106) Pulse Ox 94 99 O2 Delivery Room Air Nasal Cannula Nasal Cannula O2 Flow Rate 2.00 2.00 Capillary Refill : Progress Note : Progress Note Pt in NAD, respirations unlabored, lungs CTAB. Vitals stable. Pt is not hypoxic here today--her O2 sats are 94-96% on RA during her entire visit. No acute findings on CXR or EKG. Creatinine elevated at 1.68, stable with her last check on 04/04/22 which it was 1.81, she has known h/o CKD. BNP was also elevated at 610, this is stable with her last check on 04/01/22 which was 692. Labs otherwise unremarkable. Pt discharged back to half-way in stable condition. She is to f/u with her PCP next week. F/u with any new/worsening. ECG Initial ECG Impression Date: Apr 22, 2022 Initial ECG Impression Time: 14:32 Initial ECG Rate: 70 Initial ECG Rhythm: Normal Sinus Initial ECG Intervals: Normal Initial ECG Impression: Normal Departure Impression Primary Impression: Congestive heart failure (CHF) Disposition: 01 HOME, SELF-CARE Condition: Stable Departure-Patient Inst. Decision time for Depature: 15:24 Referrals: MENA ZURITA DO (PCP/Family) Primary Care Physician Patient Instructions: Heart Failure, Adult (DC) Add. Discharge Instructions: Continue home medications as prescribed. Continue wearing compression stockings during daytime. Follow up with PCP next week. Follow up with any new/worsening concerns All discharge instructions reviewed with patient and/or family. Voiced understanding. SAMMIE KELLEY APRN Apr 22, 2022 14:10
[2022-04-22 14:25] LABS: BASOPHILS % (AUTO) 1 % (0-10); EOSINOPHILS # (AUTO) 0.2 10^3/uL (0.0-0.3); EOSINOPHILS % (AUTO) 4 % (0-10); HEMATOCRIT 34 % (35-52); LYMPHOCYTES # (AUTO) 1.4 X 10^3 (1.0-4.0); LYMPHOCYTES % (AUTO) 34 % (12-44); MEAN CORPUSCULAR HEMOGLOBIN 29 pg (25-34); MEAN CORPUSCULAR HGB CONC 32 g/dL (32-36); MEAN CORPUSCULAR VOLUME 91 fL (80-99); MEAN PLATELET VOLUME 9.8 fL (9.0-12.2); MONOCYTES # (AUTO) 0.5 X 10^3 (0.0-1.0); MONOCYTES % (AUTO) 11 % (0-12); NEUTROPHILS # (AUTO) 2.2 X 10^3 (1.8-7.8); NEUTROPHILS % (AUTO) 50 % (42-75); PLATELET COUNT 119 10^3/uL (130-400); WHITE BLOOD COUNT 4.3 10^3/uL (4.3-11.0)
[2022-04-22 14:43] LABS: ALBUMIN 3.2 GM/DL (3.2-4.5)
[2022-04-22 14:44] LABS: CHLORIDE 104 MMOL/L (98-107); POTASSIUM 3.7 MMOL/L (3.6-5.0); SODIUM 142 MMOL/L (135-145)
[2022-04-22 14:45] LABS: CALCIUM 8.6 MG/DL (8.5-10.1)
[2022-04-22 14:46] LABS: GLUCOSE 155 MG/DL (70-105)
[2022-04-22 14:47] LABS: CARBON DIOXIDE 26 MMOL/L (21-32)
[2022-04-22 14:48] LABS: BILIRUBIN,TOTAL 0.3 MG/DL (0.1-1.0)
[2022-04-22 14:49] LABS: ALKALINE PHOSPHATASE 81 U/L (40-136)
[2022-04-22 14:50] LABS: CREATININE SERUM 1.68 MG/DL (0.60-1.30); GFR ESTIMATED 37
[2022-04-22 14:51] LABS: BUN/CREATININE RATIO 17
[2022-04-22 14:53] LABS: ALANINE AMINOTRANSFERASE 25 U/L (0-55)
--- NOTE | 2022-04-22 14:57 | Diagnostic Imaging Report ---
INDICATION: Cough, shortness of air. COMPARISON: 04/03/2022. TECHNIQUE: Two radiographs of the chest dated April 22, 2022. FINDINGS: The cardiac silhouette is within normal limits in size. No significant pulmonary vascular congestion. Blunting of the right costophrenic angle. The lungs otherwise appear clear. No pneumothorax. No acute osseous abnormality. IMPRESSION: Blunting of the right costophrenic angle, felt to relate to a small right basilar pleural effusion. This appears slightly worsened since the prior examinations. Dictated by: Dictated on workstation # [id number]
[2022-04-22 15:33] VITALS: BP 136/83
== END 2022-04-22 15:33 | disposition home or self-care (01) ==
LOC: EDUNIT# 14:05 → ER 14:06
DX: I50.9 Heart failure, unspecified (principal); E11.22 Type 2 diabetes mellitus with diabetic chronic kidney disease; N18.30 Chronic kidney disease, stage 3 unspecified
CPT/HCPCS: 36415; 71046; 80053; 83880; 84484; 85025; 93005

== ENCOUNTER 2022-04-23 09:05 | Emergency (ER) | payer BC, MEDICAID ==
[~2022-04-23] VITALS: Ht 172.2 cm; Wt 104.5 kg
--- NOTE | 2022-04-23 09:19 | ED General ---
General Chief Complaint: Cardiac/General Problems Stated Complaint: ABNORMAL LABS Nursing Triage Note: pt to ed per ems, states Dr Sanderson office called her this morning stating that she had elevated troponin levels and she needed to come to the ER to be evaluated. Was also seen here yesterday for the same complaint and 2 weeks ago for the same complaint. Pt denies any chest pain or any pain anywhere at all, denies SOB. Source of Information: Patient Exam Limitations: No Limitations History of Present Illness Date Seen by Provider: Apr 23, 2022 Time Seen by Provider: 09:05 Initial Comments 46-year-old female presents to the emergency department today for reported abnormal labs. She is from a local nursing facility was seen here yesterday for shortness of breath with a negative work-up including a negative troponin. The shelter called the doctor today as labs from Sunday came back with an elevated troponin and mildly elevated D-dimer. Notably this was drawn before her evaluation yesterday and she had a completely undetectable troponin yesterday. She states she is having no symptoms today. She specifically denies any chest pain, shortness of breath. She is on oxygen via nasal cannula 2 to 4 L [id number]. Allergies and Home Medications Allergies Coded Allergies: Penicillins (Verified Allergy, Unknown, 01/19/08) Patient Home Medication List Home Medication List Reviewed: Yes Acetaminophen (Acetaminophen) 325 Mg Tablet, 650 MG PO Q6H PRN for PAIN-MILD (1- 4), (Reported) Entered as Reported by: SOREN BOLANOS on 04/01/221724 Apixaban (Eliquis) 5 Mg Tablet, 5 MG PO BID, (Reported) Entered as Reported by: SOREN BOLANOS on 04/01/221724 Aspirin (Aspirin) 81 Mg Tab.chew, 81 MG PO DAILY, (Reported) Entered as Reported by: SOREN BOLANOS on 04/01/221724 Atorvastatin Calcium (Atorvastatin Calcium) 40 Mg Tablet, 40 MG PO HS, (Reported) Entered as Reported by: SOREN BOLANOS on 04/01/221724 B12/Levomefolate Calcium/B-6 (Foltx Tablet) 2 Mg-1.13 Mg-25 Mg Tablet, 1 TAB PO DAILY, (Reported) Entered as Reported by: SOREN BOLANOS on 04/01/221724 Carvedilol (Carvedilol) 6.25 Mg Tablet, 6.25 MG PO BID Prescribed by: WENCESLAO CUNNINGHAM on 04/04/22 113 Divalproex Sodium (Divalproex Sodium) 500 Mg Tablet.dr, 500 MG PO BID, (Re ported) Entered as Reported by: SOREN BOLANOS on 04/01/221724 Docusate Sodium (Colace) 100 Mg Capsule, 100 MG PO DAILY PRN for CONSTIPATION- 1ST LINE, (Reported) Entered as Reported by: SOREN BOLANOS on 04/01/221724 Escitalopram Oxalate (Escitalopram Oxalate) 10 Mg Tablet, 10 MG PO DAILY, (Reported) Entered as Reported by: SOREN BOLANOS on 04/01/221724 Ferrous Sulfate (Iron) 325 Mg (65 Mg Iron) Tablet, 325 MG PO DAILY, (Reported) Entered as Reported by: SOREN BOLANOS on 04/01/221724 Furosemide (Furosemide) 40 Mg Tablet, 40 MG PO DAILY, (Reported) Entered as Reported by: SOREN BOLANOS on 04/01/221724 Lacosamide (Lacosamide) 100 Mg Tablet, 100 MG PO BID, (Reported) Entered as Reported by: SOREN BOLANOS on 04/01/221724 Levetiracetam (Levetiracetam) 750 Mg Tablet, 750 MG PO BID, (Reported) Entered as Reported by: SOREN BOLANOS on 04/01/221724 Magnesium Hydroxide (Milk of Magnesia) 400 Mg/5 Ml Oral.susp, 30 ML PO DAILY PRN for CONSTIPATION-2ND LINE, (Reported) Entered as Reported by: SOREN BOLANOS on 04/01/221724 Mineral Oil/Petrolatum,White (Eucerin Creme) 113 Gm Cream..g., 1 GM TP HS, (Reported) Entered as Reported by: SOREN BOLANOS on 04/01/221724 Olanzapine (Olanzapine) 2.5 Mg Tablet, 2.5 MG PO HS, (Reported) Entered as Reported by: SOREN BOLANOS on 04/01/221724 Review of Systems Review of Systems Constitutional: no symptoms reported EENTM: no symptoms reported Respiratory: no symptoms reported Cardiovascular: no symptoms reported Gastrointestinal: no symptoms reported Genitourinary: no symptoms reported Musculoskeletal: no symptoms reported Skin: no symptoms reported Psychiatric/Neurological: No Symptoms Reported Hematologic/Lymphatic: No Symptoms Reported Immunological/Allergic: no symptoms reported Past Ztpjaia-Mzweyr-Rxeyxq Hx Patient Social History Tobacco Use?: No Substance use?: No Alcohol Use?: No Pt feels they are or have been: No Immunizations Up To Date First/Initial COVID19 Vaccinat: 02/2021 Second COVID19 Vaccination Jean Carlos: 02/2021 Third COVID19 Vaccination Date: 02/2021 Past Medical History Surgery/Hospitalization HX: TYPE II DIABETIC, EPILEPSY HYPOTHYRODISM KIDNEY DISEASE STAGE 3 High Cholesterol, Hypertension Stroke Reproductive Disorders: No Family Medical History Reviewed Nursing Family Hx No Pertinent Family Hx Physical Exam Vital Signs Vital Signs - First Documented 04/23/22 09:08 Temp 36.1 Pulse 71 Resp 18 B/P (MAP) 125/109 (114) Pulse Ox 100 O2 Delivery Nasal Cannula O2 Flow Rate 4.00 Capillary Refill : Less Than 3 Seconds Height, Weight, BMI Height: '" Weight: lbs. oz. kg; 35.00 BMI Method:Stated General Appearance: No Apparent Distress, WD/WN HEENT: Normal ENT Inspection, Pharynx Normal Neck: Normal Inspection, Non Tender, Supple Respiratory: Chest Non Tender, Lungs Clear, Normal Breath Sounds, No Accessory Muscle Use, No Respiratory Distress Cardiovascular: Regular Rate, Rhythm, No Edema, No Gallop, No JVD, No Murmur, Normal Peripheral Pulses Gastrointestinal: Normal Bowel Sounds, No Organomegaly, No Pulsatile Mass, Non Tender Extremity: Normal Capillary Refill, Normal Range of Motion, Non Tender, No Calf Tenderness, Other (Post medial bilateral lower extremity) Neurologic/Psychiatric: Alert, Oriented x3, Normal Mood/Affect Skin: Normal Color, Warm/Dry Lymphatic: No Adenopathy Progress/Results/Core Measures Suspected Sepsis SIRS Temperature: Pulse: 71 Respiratory Rate: 18 Blood Pressure 125 /109 Mean: 114 Results/Orders My Orders Orders - SIERRA MON DO Ekg Tracing (04/23/22 09:13) Vital Signs/I&O 04/23/22 09:08 Temp 36.1 Pulse 71 Resp 18 B/P (MAP) 125/109 (114) Pulse Ox 100 O2 Delivery Nasal Cannula O2 Flow Rate 4.00 Capillary Refill : Less Than 3 Seconds Blood Pressure Mean: 114 ECG EKG : Comment Sinus rhythm at 71 bpm. Left axis deviation. Normal intervals. No ST or T wave abnormalities. No ectopy. Left bundle branch block. No STEMI. Departure Communication (Admissions) Patient is hemodynamically stable. She endorses absolutely no symptoms at this time and is really unclear why she is here. Had labs drawn on Sunday with a mildly elevated troponin per the nursing facility. They called the doctor with those labs today and they recommended that she be evaluated that she was "having a heart attack." Notably yesterday she had an undetectable troponin during her evaluation for shortness of breath. Patient herself states her shortness of breath has completely resolved at present. Again she is having no chest pain. I do not see the need to recheck a troponin at this point. EKG is nonischemic and unchanged from yesterday's evaluation. She is discharged back to the nursing facility in otherwise stable condition. Impression Primary Impression: Encounter for medical screening examination Disposition: HOME, SELF-CARE Condition: Stable Departure-Patient Inst. Referrals: MENA ZURITA DO (PCP/Family) Primary Care Physician Add. Discharge Instructions: Follow-up with your doctor as needed. Return to the emergency department for any severe concerns. All discharge instructions reviewed with patient and/or family. Voiced understanding. SIERRA MON DO Apr 23, 2022 09:19
[2022-04-23 09:34] VITALS: BP 144/84
== END 2022-04-23 10:05 | disposition home or self-care (01) ==
LOC: EDUNIT# 09:05 → ER 09:06
DX: Z00.00 Encounter for general adult medical examination without abnormal findings (principal)
CPT/HCPCS: 93005

== ENCOUNTER → 2022-07-28 | Outpatient (CLI) | payer BC, MEDICAID | LOC: CARD 13:13 | PROVIDERS: ATTEND Nurse Practitioner Family | DX: I42.0 Dilated cardiomyopathy (principal) | CPT/HCPCS: 93306 ==

== ENCOUNTER 2022-08-11 12:15 | Emergency (ER) | payer MEDICAID ==
[2022-08-11] VITALS (8 sets, daily range): BP systolic 108–140; BP diastolic 51–87
[~2022-08-11] VITALS: Ht 172.7 cm; Wt 99.7 kg
--- NOTE | 2022-08-11 13:30 | Diagnostic Imaging Report ---
PROCEDURE: US Non-ob pelvis comp/trans. TECHNIQUE: Multiple realtime grayscale images were obtained of the pelvis in various projections endovaginally. Transabdominal imaging was also performed. INDICATION: Dysfunctional uterine bleeding. COMPARISON: None available. FINDINGS: The uterus measures 9.3 x 5.1 x 5.8 cm and is retroverted. There is no myometrial mass. The endometrium measures 0.6 cm in thickness, seen only on the transabdominal imaging. The estimated images on transvaginal imaging is an area of artifact and cannot be adequately assessed. A few subcentimeter cystic structures in the cervix are most indicative of nabothian gland cyst. The right ovary measures 2.6 x 1.8 x 2.0 cm. Blood flow is present in the right ovary by color Doppler and spectral Doppler imaging. Left adnexa is imaged but the left ovary is not seen due to surrounding bowel gas. No free pelvic fluid. IMPRESSION: 1. No myometrial mass or endometrial thickening. 2. Right ovary is normal. 3. Left ovary is not visualized due to surrounding bowel gas. Dictated by: Dictated on workstation # [id number]
[2022-08-11 15:53] LABS: EOSINOPHILS # (AUTO) 0.1 10^3/uL (0.0-0.3); EOSINOPHILS % (AUTO) 2 % (0-10); LYMPHOCYTES % (AUTO) 21 % (12-44); MEAN CORPUSCULAR HGB CONC 35 g/dL (32-36)
[2022-08-11 15:55] LABS: BASOPHILS % (AUTO) 1 % (0-10); LYMPHOCYTES # (AUTO) 1.2 10^3/uL (1.0-4.0); MEAN CORPUSCULAR HEMOGLOBIN 31 pg (25-34); MEAN CORPUSCULAR VOLUME 90 fL (80-99); MEAN PLATELET VOLUME 9.7 fL (9.0-12.2); MONOCYTES # (AUTO) 0.8 10^3/uL (0.0-1.0); MONOCYTES % (AUTO) 14 % (0-12); NEUTROPHILS # (AUTO) 3.4 10^3/uL (1.8-7.8); NEUTROPHILS % (AUTO) 61 % (42-75); PLATELET COUNT 84 10^3/uL (130-400); WHITE BLOOD COUNT 5.6 10^3/uL (4.3-11.0)
--- NOTE | 2022-08-11 15:56 | ED General ---
General Chief Complaint: - Reproductive Stated Complaint: LOW HEMOGLOBIN Nursing Triage Note: PT TO RM 8 BY WC FROM [facility] WITH COMPLAINT OF LOW HGB AT 5.8. STATES SHE HAS BEEN HAVING VAGINAL BLEEDING WITH CLOTS FOR APPROX 2-3 WEEKS. TAKES ELIQUIS. Source of Information: Patient, Long-Term Records Exam Limitations: No Limitations History of Present Illness Date Seen by Provider: Aug 11, 2022 Time Seen by Provider: 12:16 Initial Comments This 46-year-old woman presents to the emergency room from the retirement with complaints of hemoglobin of 5.8 and excessive vaginal bleeding for the past 2 to 3 weeks. She has a history of heavy menstrual periods but this cycle has gone on for much longer period of time. She has been passing clots of varying sizes. Her mailroom courier is Dr. WRIGHT, and she is trying to get a referral to his new practice in [place]. Hemoglobin obtained from the retirement reportedly was 5.8. Patient is alert and oriented. She does feel weak and tired. She is on Eliquis for stroke prophylaxis with paroxysmal atrial fibrillation. Allergies and Home Medications Allergies Coded Allergies: Penicillins (Verified Allergy, Unknown, 01/19/08) Sulfa (Sulfonamide Antibiotics) (Unverified Allergy, Unknown, 04/23/22) codeine (Unverified Allergy, Unknown, 04/23/22) latex (Unverified Allergy, Unknown, 04/23/22) phenytoin (Unverified Allergy, Unknown, 04/23/22) Patient Home Medication List Home Medication List Reviewed: Yes Acetaminophen (Acetaminophen) 325 Mg Tablet, 650 MG PO Q6H PRN for PAIN-MILD (1- 4), (Reported) Entered as Reported by: SOREN BOLANOS on 04/01/221724 Apixaban (Eliquis) 5 Mg Tablet, 5 MG PO BID, (Reported) Entered as Reported by: SOREN BOLANOS on 04/01/22 172 Aspirin (Aspirin) 81 Mg Tab.chew, 81 MG PO DAILY, (Reported) Entered as Reported by: SOREN BOLANOS on 04/01/221724 Atorvastatin Calcium (Atorvastatin Calcium) 40 Mg Tablet, 40 MG PO HS, (Reported) Entered as Reported by: SOREN BOLANOS on 04/01/22 172 B12/Levomefolate Calcium/B-6 (Foltx Tablet) 2 Mg-1.13 Mg-25 Mg Tablet, 1 TAB PO DAILY, (Reported) Entered as Reported by: SOREN BOLANOS on 04/01/22 172 Carvedilol (Carvedilol) 6.25 Mg Tablet, 6.25 MG PO BID Prescribed by: WENCESLAO CUNNINGHAM on 04/04/22 1133 Divalproex Sodium (Divalproex Sodium) 500 Mg Tablet.dr, 500 MG PO BID, (Reported) Entered as Reported by: SOREN BOLANOS on 04/01/22 172 Docusate Sodium (Colace) 100 Mg Capsule, 100 MG PO DAILY PRN for CONSTIPATION- 1ST LINE, (Reported) Entered as Reported by: SOREN BOLANOS on 04/01/22 172 Escitalopram Oxalate (Escitalopram Oxalate) 10 Mg Tablet, 10 MG PO DAILY, (Reported) Entered as Reported by: SOREN BOLANOS on 04/01/221724 Ferrous Sulfate (Iron) 325 Mg (65 Mg Iron) Tablet, 325 MG PO DAILY, (Reported) Entered as Reported by: SOREN BOLANOS on 04/01/22 172 Ferrous Sulfate (Ferrous Sulfate) 325 Mg (65 Mg Iron) Tablet, 325 MG PO BID Prescribed by: DA TAO on 08/11/22 175 Furosemide (Furosemide) 40 Mg Tablet, 40 MG PO DAILY, (Reported) Entered as Reported by: SOREN BOLANOS on 04/01/221724 Lacosamide (Lacosamide) 100 Mg Tablet, 100 MG PO BID, (Reported) Entered as Reported by: SOREN BOLANOS on 04/01/22 172 Levetiracetam (Levetiracetam) 750 Mg Tablet, 750 MG PO BID, (Reported) Entered as Reported by: SOREN BOLANOS on 04/01/22 172 Magnesium Hydroxide (Milk of Magnesia) 400 Mg/5 Ml Oral.susp, 30 ML PO DAILY PRN for CONSTIPATION-2ND LINE, (Reported) Entered as Reported by: SOREN BOLANOS on 04/01/22 172 Medroxyprogesterone Acetate (Provera) 10 Mg Tablet, 10 MG PO DAILY Prescribed by: DA TAO on 08/11/221751 Mineral Oil/Petrolatum,White (Eucerin Creme) 113 Gm Cream..g., 1 GM TP HS, (Reported) Entered as Reported by: SOREN BOLANOS on 04/01/221724 Multivitamin (Multivitamin) 1 Each Tablet, 1 EACH PO DAILY Prescribed by: DA TAO on 08/11/221751 Olanzapine (Olanzapine) 2.5 Mg Tablet, 2.5 MG PO HS, (Reported) Entered as Reported by: SOREN BOLANOS on 04/01/221724 Review of Systems Review of Systems Constitutional: see HPI EENTM: no symptoms reported Respiratory: no symptoms reported Cardiovascular: see HPI Gastrointestinal: no symptoms reported, other (No hematochezia or melena) Genitourinary: see HPI; No hematuria Musculoskeletal: no symptoms reported Skin: no symptoms reported Psychiatric/Neurological: No Symptoms Reported Hematologic/Lymphatic: See HPI Immunological/Allergic: no symptoms reported Past Zcjjczq-Qobvxq-Moncyg Hx Patient Social History Tobacco Use?: No Substance use?: No Alcohol Use?: No Pt feels they are or have been: No Immunizations Up To Date First/Initial COVID19 Vaccinat: 02/2021 Second COVID19 Vaccination Jean Carlos: 02/2021 Third COVID19 Vaccination Date: 02/2021 Past Medical History Surgery/Hospitalization HX: TYPE II DIABETIC, EPILEPSY HYPOTHYRODISM KIDNEY DISEASE STAGE 3 Surgeries: Yes Gallbladder Respiratory: No Cardiac: Yes Atrial Fibrillation, Cardiomyopathy (With CHF), High Cholesterol, Hypertension Neurological: Yes Seizure Disorder, Stroke : No Reproductive Disorders: Yes Female Reproductive Disorders: Menstrual Problems Genitourinary: No Gastrointestinal: No Musculoskeletal: No Endocrine: Yes Diabetes, Non-Insulin dep HEENT: No Cancer: No Psychosocial: No Family Medical History No Pertinent Family Hx Physical Exam Vital Signs Vital Signs - First Documented 08/11/22 12:22 Temp 37.0 Pulse 78 Resp 16 B/P (MAP) 115/64 (81) Pulse Ox 96 O2 Delivery Room Air Capillary Refill : Less Than 3 Seconds Height, Weight, BMI Height: '" Weight: lbs. oz. kg; 33.00 BMI Method:Stated General Appearance: No Apparent Distress, WD/WN HEENT: PERRL/EOMI, Normal ENT Inspection Neck: Normal Inspection Respiratory: Lungs Clear, Normal Breath Sounds, No Accessory Muscle Use Cardiovascular: No Edema, No Murmur, Irregularly Irregular Gastrointestinal: Non Tender, Soft Genital/Rectal: Other (There is some clotted blood and some bright red blood in the vaginal vault. Vaginal tissues and cervical tissue appears normal. There is a clot in the cervical os. External genitalia appear normal.) Extremity: Normal Inspection, No Pedal Edema Neurologic/Psychiatric: Alert, Oriented x3, No Motor/Sensory Deficits, Normal Mood/Affect Skin: Warm/Dry, Pallor Progress/Results/Core Measures Suspected Sepsis SIRS Temperature: Pulse: 78 Respiratory Rate: 16 Laboratory Tests 08/11/22 15:40: White Blood Count 5.6 Blood Pressure 115 /64 Mean: 81 Laboratory Tests 08/11/22 15:40: Creatinine 2.27H, Platelet Count 84L Results/Orders Lab Results Laboratory Tests Test 08/11/22 15:40 Range/Units White Blood Count 5.6 4.3-11.0 10^3/uL Red Blood Count 1.98 L 3.80-5.11 10^6/uL Hemoglobin 6.2 *L 11.5-16.0 g/dL Hematocrit 18 *L 35-52 % Mean Corpuscular Volume 90 80-99 fL Mean Corpuscular Hemoglobin 31 25-34 pg Mean Corpuscular Hemoglobin Concent 35 32-36 g/dL Red Cell Distribution Width 15.0 H 10.0-14.5 % Platelet Count 84 L 130-400 10^3/uL Mean Platelet Volume 9.7 9.0-12.2 fL Immature Granulocyte % (Auto) 1 % Neutrophils (%) (Auto) 61 42-75 % Lymphocytes (%) (Auto) 21 12-44 % Monocytes (%) (Auto) 14 H 0-12 % Eosinophils (%) (Auto) 2 0-10 % Basophils (%) (Auto) 1 0-10 % Neutrophils # (Auto) 3.4 1.8-7.8 10^3/uL Lymphocytes # (Auto) 1.2 1.0-4.0 10^3/uL Monocytes # (Auto) 0.8 0.0-1.0 10^3/uL Eosinophils # (Auto) 0.1 0.0-0.3 10^3/uL Basophils # (Auto) 0.0 0.0-0.1 10^3/uL Immature Granulocyte # (Auto) 0.0 0.0-0.1 10^3/uL Percent Immature Platelet Fraction 1.4 0.0-7.6 % Sodium Level 139 135-145 MMOL/L Potassium Level 4.0 3.6-5.0 MMOL/L Chloride Level 103 98-107 MMOL/L Carbon Dioxide Level 28 21-32 MMOL/L Anion Gap 8 5-14 MMOL/L Blood Urea Nitrogen 40 H 7-18 MG/DL Creatinine 2.27 H 0.60-1.30 MG/DL Estimat Glomerular Filtration Rate 26 BUN/Creatinine Ratio 18 Glucose Level 117 H 70-105 MG/DL Calcium Level 8.1 L 8.5-10.1 MG/DL Thyroid Stimulating Hormone (TSH) 2.37 0.35-4.94 UIU/ML Free Thyroxine 0.65 L 0.70-1.48 NG/DL Valproic Acid (Depakene) Level 70.6 50.0-100.0 UG/ML My Orders Orders - DA HOLCOMB MD Cbc With Automated Diff (08/11/22 12:21) Basic Metabolic Panel (08/11/22 12:32) Valproic Acid (08/11/22 12:32) Type And Screen (08/11/22 12:32) Thyroid Stimulating Hormone (08/11/22 12:34) Free T4 (Free Thyroxine) (08/11/22 12:34) Us Non Ob Pelvis Comp/Transvag (08/11/22 12:33) Ns Iv 1000 Ml (Sodium Chloride 0.9%) (08/11/22 16:00) Red Cells Leukocytes Reduced (08/11/22 15:57) Medroxyprogesterone Tablet (Provera Tabl (08/11/22 17:45) Medications Given in ED Current Medications Medications Dose Ordered Sig/Aravind Route Start Time Stop Time Status Last Admin Dose Admin Medroxyprogesterone Acetate 10 mg ONCE ONCE PO 08/11/22 17:45 08/11/22 17:46 DC 08/11/22 19:13 10 MG Vital Signs/I&O 08/11/22 08/11/22 08/11/22 08/11/22 12:22 17:34 17:44 19:03 Temp 37.0 36.7 36.6 36.9 Pulse 78 85 82 83 Resp 16 16 16 16 B/P (MAP) 115/64 (81) 108/51 111/54 140/73 Pulse Ox 96 97 95 97 O2 Delivery Room Air Room Air 08/11/22 08/11/22 08/11/22 08/11/22 19:16 19:31 19:45 19:56 Temp 36.2 36.5 36.6 36.4 Pulse 78 83 82 84 Resp 14 14 14 16 B/P (MAP) 132/67 139/71 140/76 139/74 Pulse Ox 94 96 98 96 O2 Delivery Room Air Room Air Room Air Room Air Capillary Refill : Less Than 3 Seconds Blood Pressure Mean: 81 Progress Note : Progress Note Labs were obtained and severe anemia was confirmed with hemoglobin of 6.2. 2 units of packed red blood cells were ordered to transfuse. Patient was advised to skip tonight's dose of Eliquis as well as tomorrow morning's dose if she continues to bleed. I discussed the case with Dr. Khan, mailroom courier on- call. We will start Provera 10 mg daily until she is able to follow-up with gynecology on an outpatient basis. Evaluation of BMP revealed an elevated creatinine more than 0.5 greater than baseline. She has acute kidney injury, likely due to her severe anemia and perhaps hypovolemia. Vascular access was a major issue during this ER stay. Multiple IV attempts were made including my several attempts with ultrasound. Ultimately a left EJ IV was established by nursing staff. Pelvic ultrasound was obtained showing no gross abnormalities of the uterus. I discussed findings with the gis application developer. Diagnostic Imaging Diagonstic Imaging: Ultrasound Plain Films/CT/US/NM/MRI: pelvis Comments NAME: FAVIAN ALONSO [facility] REC#: [id number] PT STATUS: REG ER : 1975 PHYSICIAN: DA HOLCOMB MD ADMIT DATE: 08/11/22/ER Signed Date of Exam:08/11/22 US NON OB PELVIS COMP/TRANSVAG PROCEDURE: US Non-ob pelvis comp/trans. TECHNIQUE: Multiple realtime grayscale images were obtained of the pelvis in various projections endovaginally. Transabdominal imaging was also performed. INDICATION: Dysfunctional uterine bleeding. COMPARISON: None available. FINDINGS: The uterus measures 9.3 x 5.1 x 5.8 cm and is retroverted. There is no myometrial mass. The endometrium measures 0.6 cm in thickness, seen only on the transabdominal imaging. The estimated images on transvaginal imaging is an area of artifact and cannot be adequately assessed. A few subcentimeter cystic structures in the cervix are most indicative of nabothian gland cyst. The right ovary measures 2.6 x 1.8 x 2.0 cm. Blood flow is present in the right ovary by color Doppler and spectral Doppler imaging. Left adnexa is imaged but the left ovary is not seen due to surrounding bowel gas. No free pelvic fluid. IMPRESSION: 1. No myometrial mass or endometrial thickening. 2. Right ovary is normal. 3. Left ovary is not visualized due to surrounding bowel gas. Dictated by: Dictated on workstation # [id number] Dict: 08/11/22 1325 Trans: 08/11/22 3042 CV [id number] Interpreted by: DINA HERNÁNDEZ MD Electronically signed by: DINA HERNÁNDEZ MD 08/11/22 1700 Departure Impression Primary Impression: Severe anemia Additional Impressions: Dysfunctional uterine bleeding Acute kidney injury Disposition: 01 HOME, SELF-CARE Condition: Improved Departure-Patient Inst. Decision time for Depature: 17:48 Referrals: YESICA TINEO DO (PCP/Family) Primary Care Physician Patient Instructions: Heavy Periods ED Add. Discharge Instructions: SKIP ELIQUIS TONIGHT. If you are still bleeding in the morning, skip the morning dose of Eliquis as well. Resume Eliquis when bleeding is gone or minimal. Use Provera daily until otherwise directed to halt menstrual bleeding. Follow- up with a mailroom courier as soon as possible for further consultation. Please see a mailroom courier before the supply of Provera runs out or have your primary care provider renewed the Provera if you are unable to get into a mailroom courier within the next 30 days. Eat a well-balanced diet, take a multivitamin daily, and take iron with meals as prescribed. Follow-up with your primary care provider soon as possible. Return to care if you have worsening symptoms despite following these instructions. All discharge instructions reviewed with patient and/or family. Voiced understanding. Scripts Medroxyprogesterone Acetate (Provera) 10 Mg Tablet 10 MG PO DAILY, #30 TAB Prov: DA HOLCOMB MD 08/11/22 Multivitamin (Multivitamin) 1 Each Tablet 1 EACH PO DAILY, #30 TAB Prov: DA HOLCOMB MD 08/11/22 Ferrous Sulfate (Ferrous Sulfate) 325 Mg (65 Mg Iron) Tablet 325 MG PO BID, #60 TAB Prov: DA HOLCOMB MD 08/11/22 Copy Copies To 1: YESICA TINEO DO Copies To 2: YONATAN WRIGHT MD, JOSHUA T MD Aug 11, 2022 15:55
[2022-08-11 15:57] LABS: HEMATOCRIT 18 % (35-52); HEMOGLOBIN 6.2 g/dL (11.5-16.0)
[2022-08-11] MEDS ORDERED: NS IV 1000 ML 1,000 ML IV SCH (16:00)
[2022-08-11 16:04] LABS: CALCIUM 8.1 MG/DL (8.5-10.1)
[2022-08-11 16:08] LABS: CREATININE SERUM 2.27 MG/DL (0.60-1.30)
[2022-08-11 16:18] LABS: VALPROIC ACID 70.6 UG/ML (50.0-100.0)
[2022-08-11 16:31] LABS: FREE T4 (FREE THYROXINE) 0.65 NG/DL (0.70-1.48)
[2022-08-11] MEDS ORDERED: medroxyPROGESTERone 10 MG (PROVERA) TAB PO ONE (17:45)
[2022-08-11] MEDS ORDERED: MULT-1136 PO (17:52)
[2022-08-11] MEDS ORDERED: MEDR10TA PO (17:52)
[2022-08-11] MEDS ORDERED: FERR325T18 PO (17:52)
== END 2022-08-11 20:12 | disposition home or self-care (01) ==
LOC: EDUNIT# 12:15 → ER 12:16
DX: D64.9 Anemia, unspecified (principal); N17.9 Acute kidney failure, unspecified; N93.8 Other specified abnormal uterine and vaginal bleeding; I48.0 Paroxysmal atrial fibrillation; Z86.73 Personal history of transient ischemic attack (TIA), and cerebral infarction without residual deficits; Z91.040 Latex allergy status; Z79.01 Long term (current) use of anticoagulants
CPT/HCPCS: 36415; 76830; 76856; 80048; 80164; 84439; 84443; 85025; 86850; 86900; 86901; 86922

== ENCOUNTER → 2022-10-26 | Outpatient (CLI) | payer MEDICAID ==
[~2022-10-26] MED LIST changes: +FERR325T18 PO; +MEDR10TA PO; +MULT-1136 PO
== END ==
LOC: CARD 09:52
PROVIDERS: ATTEND Internal Medicine Cardiovascular Disease
DX: I50.20 Unspecified systolic (congestive) heart failure (principal); I51.89 Other ill-defined heart diseases
CPT/HCPCS: 93306